=== PATIENT | female | born 1930 | race Caucasian/White ===

== ENCOUNTER 2018-03-27 14:23 | Inpatient (IN) ==
[2018-03-27] MEDS ORDERED: ACETAMINOPHEN 325 MG TAB PO STA (15:03)
[2018-03-27] MEDS ORDERED: TRAMADOL HCL 50 MG TABLET PO STA (15:03)
[2018-03-27] MEDS ORDERED: IBUPROFEN 200 MG TAB PO STA (15:03)
--- NOTE | 2018-03-27 16:46 | XRay Report ---
XR femur LT 2V routine CLINICAL HISTORY: 87 years-old Female presenting with mid and proximal thigh pain. TECHNIQUE: Frontal and lateral views of the left femur were obtained. COMPARISON: None. FINDINGS: Total left knee arthroplasty with patellar resurfacing. Subcapital fracture of the left femoral neck with 1.3 cm of proximal displacement of the distal fracture fragment. Slight impaction along the medi al aspect of the fracture plane as well as lateral displacement of the femoral neck. Minimal coxa leroy us angulation. Underlying osteopenia suspected. Visualized portion of the bony pelvis intact. Atheros clerosis. IMPRESSION: Subcapital left femoral neck fracture with mild impaction and proximal and lateral displacement. Electronically signed by: Anthony Hill M.D. 03/27/2018 4:44 PM
--- NOTE | 2018-03-27 16:55 | XRay Report ---
XR hip LT 2-3V w pelvis CLINICAL HISTORY: 87 years-old Female presenting with pain. TECHNIQUE: Single frontal view the pelvis and frontal and crosstable lateral views of the left hip we re obtained. COMPARISON: Correlation made to CT of the abdomen and pelvis from 11/11/2017. FINDINGS: Subcapital left femoral neck fracture with over 1 cm of lateral and proximal displacement of the dist al fracture fragment. Impaction along the medial aspect of the fracture plane. Minimal coxa varus ang ulation. The left femoral head remains congruent in the acetabulum. Bony pelvis intact. Sacral iliac joints, pubic symphysis, and right hip joint congruent. Underlying o steopenia suggested. Degenerative changes of the lower lumbar spine. Atherosclerosis. IMPRESSION: Mildly displaced and impacted subcapital left femoral neck fracture. Electronically signed by: Anthony Hill M.D. 03/27/2018 4:54 PM
--- NOTE | 2018-03-27 17:21 | Emergency Department Note ---
Entered by Toy Santacruz acting as a scribe for Jeremie Downey MD History of Present Illness General Chief complaint: Leg Injury/Pain Stated complaint: PAIN IN UPPER LEFT LEG WHEN PUTTING WEIGHT ON IT Time Seen by Provider: 03/27/18 14:46 Source: patient and family Limitations: no limitations History of Present Illness Provider complaint: Left upper leg pain Onset (ago): week(s) Location: lower extremity and left Pain Consistency: + other (worsening) Maximum Pain Intensity: 9 Relieved By: + other (certain positions) Exacerbated By: + movement and + other (walking/applying weight) Treatments prior to arrival: other (Hydrocodone) The patient is an 87 year old white female with a past medical history of GI bleed, CHF, PMR, hypertension, CAD, cardiac stents, total left knee replacement , and hysterectomy who presents to the Emergency Room with complaints of worsening pain in the left upper leg for the past week. The patient states that she has been having pain in the leg for the past week, which acutely worsened over the past two days. She does note that there is some "numbness" lower in the left leg as well. She denies any recent trauma or twisting/turning that could have precipitated the symptoms. The pain is worsened with applying weight and walking on the leg. She can get relief from the pain when she gets into the right position. The patient's daughter at bedside adds that the patient has a history of back issues and polymyalgia rheumatica. She has recently started following with pain management and has received 2 injections. The patient was doing very well for about 1 month after the injections, until this pain started. Pain management has prescribed her Hydrocodone, which she has been taking for her current pain as well. The daughter adds that the patient did have recent imaging of her back that showed a "chipped tailbone" and a fractured sacrum. She denies any lower extremity swelling or history of blood clots. Home Medications Home Medications Medication Instructions Recorded Confirmed Type amlodipine 10 mg PO DAILY 11/06/17 03/27/18 History atorvastatin 20 mg PO DAILY 11/06/17 03/27/18 History gabapentin 100 mg PO TID 11/06/17 03/27/18 History minoxidil 2.5 mg PO DAILY 11/06/17 03/27/18 History moexipril 7.5 mg PO DAILY #30 tab 11/13/17 03/27/18 Rx furosemide 20 mg PO DAILY PRN 03/27/18 03/27/18 History hydrocodone-acetaminophen 1 tab PO TID PRN 03/27/18 03/27/18 History metoprolol tartrate 50 mg PO BID 03/27/18 03/27/18 History pantoprazole 40 mg PO QAM 03/27/18 03/27/18 History prednisone 5 mg PO DAILY 03/27/18 03/27/18 History Allergies Allergy/AdvReac Type Severity Reaction Status Date / Time Sulfa (Sulfonamide Allergy Swelling Verified 03/27/18 15:35 Antibiotics) of the Eye zolpidem [From Ambien] AdvReac Unknown Confusion Verified 03/27/18 15:35 Past Med/Surg History Medical History Hypercalcemia Lower back pain Pulmonary hypertension Chronic diastolic CHF (congestive heart failure) Hyperlipidemia Polymyalgia rheumatica Hypertension CAD (coronary artery disease) Intrathoracic goiter Leukocytosis Surgical History History of breast biopsy History of appendectomy History of heart artery stent History of total left knee replacement (TKR) H/O: hysterectomy Family History Mother Renal cancer Other Coronary artery disease Social History marital status: / Current Living Situation: Alone Current Living Situation Comment: apartment for elderly Other Information That Helps Us Care for You: No Feels Safe at Home: Yes Safety Concerns: Feels Safe At This Time Smoking Status: Never smoker Do You Dip or Chew Tobacco: No Second Hand Exposure: No Tobacco Cessation Education Requested by Patient: No Hx Alcohol Use: No Hx Substance Use: No Beliefs That Will Affect Care: None Communication Ability: Effective Call Out Clerk Required: No Review of Systems See HPI for pertinent positives & negatives. and A total of 10 systems reviewed and were otherwise negative Physical Exam Vital Signs Vital Signs - 24 hr 03/27/18 14:37 03/27/18 16:10 03/27/18 17:59 Temperature 37.0 C Temperature Source Oral Sepsis Recent Fever Within 48 Hours No Sepsis New/Unexplained Change in Mental Status No Sepsis Action Taken by Nursing No Action Required Pulse Rate 59 L Pulse Rate [Apical] 60 59 L Pulse Rate [Left Finger] Respiratory Rate 18 22 20 Respiratory Effort / Characteristics Non-Labored Respiratory Depth Normal Respiratory Pattern Regular Blood Pressure 137/59 L Blood Pressure [Left Arm] 135/87 144/61 H Blood Pressure Mean 85 Blood Pressure Mean [Left Arm] 103 88 Blood Pressure Position Sitting Blood Pressure Position [Left Arm] Pulse Oximetry 92 92 94 Oxygen Delivery Method Room Air Room Air Room Air 03/27/18 19:00 03/27/18 20:15 Temperature 36.8 C Temperature Source Oral Sepsis Recent Fever Within 48 Hours Sepsis New/Unexplained Change in Mental Status Sepsis Action Taken by Nursing Pulse Rate Pulse Rate [Apical] 66 Pulse Rate [Left Finger] 62 Respiratory Rate 20 20 Respiratory Effort / Characteristics Non-Labored Non-Labored Spontaneous Respiratory Depth Normal Normal Respiratory Pattern Regular Regular Blood Pressure Blood Pressure [Left Arm] 133/70 123/67 Blood Pressure Mean Blood Pressure Mean [Left Arm] 91 85 Blood Pressure Position Blood Pressure Position [Left Arm] Lying Pulse Oximetry 94 96 Oxygen Delivery Method Room Air Room Air GENERAL: Well appearing, well nourished, NAD, non-toxic. EYE EXAM: Normal conjunctiva. PERRL, no anisocoria and EOM's grossly intact w/o pain. OROPHARYNX: No exudate, posterior pharynx is clear, no tonsillar/uvular deviation or swelling. NECK: Supple, no nuchal rigidity, no adenopathy, non-tender. no signs of meningismus. LUNGS: Clear to auscultation. Normal chest wall mechanics. HEART: NSR, no MRG. ABDOMEN: Abdomen soft, non-tender, normo-active bowel sounds, no masses, no rebound or guarding. BACK: No CVA TTP. SKIN: No rashes and no bruising. UPPER EXTREMITIES: Upper extremities are grossly normal. LOWER EXTREMITIES: There is pain over the left lateral hip and proximal thigh. No obvious deformity, no sensory deficit and well perfused. There is a well healed incisional scar over the left knee. NEURO EXAM: Cranial nerves II-XII grossly intact, normal speech, 5/5 strength throughout, moves all 4 extremities on command w/o issue. Course 1450: Past medical records reviewed. The patient was evaluated in room C11B, and a complete history and physical examination were performed. 1708: I updated the patient on the findings of her x-ray. 1713: I reviewed the patient's case with Dr. Kirsten Gay [place] [facility] [place] She will evaluate the patient for further management. 1719: I updated the patient on my consult with Dr. Gay. She is agreeable to admission. 1725: I discussed the case with Dr. Wu - Orthopedics. He will see the patient in consult. Consultations Consultation #1: 1713: I reviewed the patient's case with Dr. Kirsten Gay - [facility] [place]. She will evaluate the patient for further management. Administered Medications Gabapentin (Neurontin) 100 mg PO TID ELLIE Stop: 04/26/18 20:59 Last Admin: 03/27/18 21:57 Dose: 100 mg Metoprolol Tartrate (Lopressor) 50 mg PO BID ELLIE Stop: 04/26/18 20:59 Last Admin: 03/27/18 21:57 Dose: 50 mg Senna/Docusate Sodium (Senokot S) 2 tab PO HS ELLIE Stop: 04/26/18 20:59 Last Admin: 03/27/18 21:56 Dose: 2 tab Discontinued Medications Acetaminophen (Tylenol) 650 mg PO NOW STA Stop: 03/27/18 15:04 Last Admin: 03/27/18 15:22 Dose: 650 mg Ibuprofen (Advil) 400 mg PO NOW STA Stop: 03/27/18 15:04 Last Admin: 03/27/18 15:22 Dose: 400 mg Tramadol HCl (Ultram) 25 mg PO NOW STA Stop: 03/27/18 15:04 Last Admin: 03/27/18 15:23 Dose: 25 mg Medical Decision Making Medical Records Attestation: I reviewed the patient's medical records. Home Medications Current Medication List: was personally reviewed by me Laboratory Data Result diagrams: 03/27/18 17:27 03/27/18 17:27 Lab Results 03/27/18 03/27/18 03/27/18 Range/Units 17:27 17: 17:27 WBC 11.68 H (4.8-10.8) K/uL RBC 5.09 (4.2-5.4) M/uL Hgb 14.0 (12.0-16.0) g/dL Hct 43.9 (37-47) % MCV 86.2 (80-100) fL MCH 27.5 (25-34) pg MCHC 31.9 L (32-36) g/dL RDW Std Deviation 47.0 H (36.4-46.3) fL RDW Coeff of Madeline 14.8 H (11.5-14.5) % Plt Count 223 (130-400) K/uL MPV 9.1 (7.4-10.4) fL Immature Gran % (Auto) 0.3 % Neut % (Auto) 79.5 % Lymph % (Auto) 13.4 % Pratt % (Auto) 6.5 % Eos % (Auto) 0.3 % Baso % (Auto) 0.0 % Immature Gran # (Auto) 0.04 H (0.00-0.02) K/uL Neut # (Auto) 9.28 H (1.4-6.5) K/uL Lymph # (Auto) 1.56 (1.2-3.4) K/uL Pratt # (Auto) 0.76 H (0.11-0.59) K/uL Eos # (Auto) 0.04 (0-0.5) K/uL Baso # (Auto) 0.00 (0-0.2) K/uL PT 10.1 (9.0-12.0) Seconds INR 1.0 (0.9-1.1) APTT 25.3 (21.0-31.0) Seconds PTT Ratio 1.0 Sodium 136 (136-145) mmol/L Potassium 4.6 (3.5-5.1) mmol/L Chloride 105 (98-107) mmol/L Carbon Dioxide 27 (21-32) mmol/L Anion Gap 4.0 (3-11) BUN 33 H (7-18) mg/dl Creatinine 1.28 H (0.6-1.2) mg/dl Est Cr Clr Drug Dosing Not Reportable Est GFR ( Amer) 43.5 Est GFR (Non-Af Amer) 37.6 BUN/Creatinine Ratio 25.9 H (10-20) Glucose 104 H (70-99) mg/dl Calcium 10.3 H (8.5-10.1) mg/dl 25-OH Vitamin D Total (30-100) ng/ml Urine Color Urine Appearance (Clear) Urine pH (4.5-7.5) Ur Specific [place] (1.000-1.030) Urine Protein (Negative) Urine Glucose (UA) (Negative) Urine Ketones (Negative) Urine Blood (Negative) Urine Nitrite (Negative) Urine Bilirubin (Negative) Urine Urobilinogen (Negative) Ur Leukocyte Esterase (Negative) Urine WBC (Auto) (0-5) /hpf Urine RBC (Auto) (0-4) /hpf U Hyaline Cast (Auto) (0-5) /lpf U Epithel Cells (Auto) (0-5) /lpf Urine Bacteria (Auto) (Negative) Urine Crystals (None Prsent) Calcium Oxalate Crystal (None Prsent) Blood Type Antibody Screen 03/27/18 03/27/18 03/27/18 Range/Units 17:27 17:27 18:04 WBC (4.8-10.8) K/uL RBC (4.2-5.4) M/uL Hgb (12.0-16.0) g/dL Hct (37-47) % MCV (80-100) fL MCH (25-34) pg MCHC (32-36) g/dL RDW Std Deviation (36.4-46.3) fL RDW Coeff of Madeline (11.5-14.5) % Plt Count (130-400) K/uL MPV (7.4-10.4) fL Immature Gran % (Auto) % Neut % (Auto) % Lymph % (Auto) % Pratt % (Auto) % Eos % (Auto) % Baso % (Auto) % Immature Gran # (Auto) (0.00-0.02) K/uL Neut # (Auto) (1.4-6.5) K/uL Lymph # (Auto) (1.2-3.4) K/uL Pratt # (Auto) (0.11-0.59) K/uL Eos # (Auto) (0-0.5) K/uL Baso # (Auto) (0-0.2) K/uL PT (9.0-12.0) Seconds INR (0.9-1.1) APTT (21.0-31.0) Seconds PTT Ratio Sodium (136-145) mmol/L Potassium (3.5-5.1) mmol/L Chloride (98-107) mmol/L Carbon Dioxide (21-32) mmol/L Anion Gap (3-11) BUN (7-18) mg/dl Creatinine (0.6-1.2) mg/dl Est Cr Clr Drug Dosing Est GFR ( Amer) Est GFR (Non-Af Amer) BUN/Creatinine Ratio (10-20) Glucose (70-99) mg/dl Calcium (8.5-10.1) mg/dl 25-OH Vitamin D Total 33.6 (30-100) ng/ml Urine Color Yellow Urine Appearance Cloudy H (Clear) Urine pH 5.0 (4.5-7.5) Ur Specific [place] 1.022 (1.000-1.030) Urine Protein Negative (Negative) Urine Glucose (UA) Negative (Negative) Urine Ketones Negative (Negative) Urine Blood Negative (Negative) Urine Nitrite Negative (Negative) Urine Bilirubin Negative (Negative) Urine Urobilinogen Negative (Negative) Ur Leukocyte Esterase 1+ H (Negative) Urine WBC (Auto) 5-10 H (0-5) /hpf Urine RBC (Auto) 0-4 (0-4) /hpf U Hyaline Cast (Auto) 1-5 (0-5) /lpf U Epithel Cells (Auto) >30 H (0-5) /lpf Urine Bacteria (Auto) Negative (Negative) Urine Crystals Calcium Oxalate H (None Prsent) Calcium Oxalate Crystal Present H (None Prsent) Blood Type Cancelled Antibody Screen Cancelled 03/27/18 Range/Units 19:28 WBC (4.8-10.8) K/uL RBC (4.2-5.4) M/uL Hgb (12.0-16.0) g/dL Hct (37-47) % MCV (80-100) fL MCH (25-34) pg MCHC (32-36) g/dL RDW Std Deviation (36.4-46.3) fL RDW Coeff of Madeline (11.5-14.5) % Plt Count (130-400) K/uL MPV (7.4-10.4) fL Immature Gran % (Auto) % Neut % (Auto) % Lymph % (Auto) % Pratt % (Auto) % Eos % (Auto) % Baso % (Auto) % Immature Gran # (Auto) (0.00-0.02) K/uL Neut # (Auto) (1.4-6.5) K/uL Lymph # (Auto) (1.2-3.4) K/uL Pratt # (Auto) (0.11-0.59) K/uL Eos # (Auto) (0-0.5) K/uL Baso # (Auto) (0-0.2) K/uL PT (9.0-12.0) Seconds INR (0.9-1.1) APTT (21.0-31.0) Seconds PTT Ratio Sodium (136-145) mmol/L Potassium (3.5-5.1) mmol/L Chloride (98-107) mmol/L Carbon Dioxide (21-32) mmol/L Anion Gap (3-11) BUN (7-18) mg/dl Creatinine (0.6-1.2) mg/dl Est Cr Clr Drug Dosing Est GFR ( Amer) Est GFR (Non-Af Amer) BUN/Creatinine Ratio (10-20) Glucose (70-99) mg/dl Calcium (8.5-10.1) mg/dl 25-OH Vitamin D Total (30-100) ng/ml Urine Color Urine Appearance (Clear) Urine pH (4.5-7.5) Ur Specific [place] (1.000-1.030) Urine Protein (Negative) Urine Glucose (UA) (Negative) Urine Ketones (Negative) Urine Blood (Negative) Urine Nitrite (Negative) Urine Bilirubin (Negative) Urine Urobilinogen (Negative) Ur Leukocyte Esterase (Negative) Urine WBC (Auto) (0-5) /hpf Urine RBC (Auto) (0-4) /hpf U Hyaline Cast (Auto) (0-5) /lpf U Epithel Cells (Auto) (0-5) /lpf Urine Bacteria (Auto) (Negative) Urine Crystals (None Prsent) Calcium Oxalate Crystal (None Prsent) Blood Type O Positive Antibody Screen NEGATIVE Imaging Data Attestation: I personally reviewed and interpreted this imaging study as follows : Radiologist's Impression: XR hip LT 2-3V w pelvis CLINICAL HISTORY: 87 years-old Female presenting with pain. TECHNIQUE: Single frontal view the pelvis and frontal and crosstable lateral views of the left hip were obtained. COMPARISON: Correlation made to CT of the abdomen and pelvis from 11/11/2017. FINDINGS: Subcapital left femoral neck fracture with over 1 cm of lateral and proximal displacement of the distal fracture fragment. Impaction along the medial aspect of the fracture plane. Minimal coxa varus angulation. The left femoral head remains congruent in the acetabulum. Bony pelvis intact. Sacral iliac joints, pubic symphysis, and right hip joint congruent. Underlying osteopenia suggested. Degenerative changes of the lower lumbar spine. Atherosclerosis. IMPRESSION: Mildly displaced and impacted subcapital left femoral neck fracture. Electronically signed by: Anthony Hill M.D. 03/27/2018 4:54 PM XR femur LT 2V routine CLINICAL HISTORY: 87 years-old Female presenting with mid and proximal thigh pain. TECHNIQUE: Frontal and lateral views of the left femur were obtained. COMPARISON: None. FINDINGS: Total left knee arthroplasty with patellar resurfacing. Subcapital fracture of the left femoral neck with 1.3 cm of proximal displacement of the distal fracture fragment. Slight impaction along the medial aspect of the fracture plane as well as lateral displacement of the femoral neck. Minimal coxa varus angulation. Underlying osteopenia suspected. Visualized portion of the bony pelvis intact. Atherosclerosis. IMPRESSION: Subcapital left femoral neck fracture with mild impaction and proximal and lateral displacement. Electronically signed by: Anthony Hill M.D. 03/27/2018 4:44 PM MDM Narrative The patient is an 87 year old white female with a past medical history of GI bleed, CHF, PMR, hypertension, CAD, cardiac stents, total left knee replacement , and hysterectomy who presents to the Emergency Room with complaints of worsening pain in the left upper leg for the past week. Differential diagnosis: Etiologies such as fracture, dislocation, neurovascular compromise, compartment syndrome, soft tissue injury, as well as others were entertained. Patient was seen and evaluated the bedside. Patient was complaining some left upper leg pain. Patient is neuro intact distally but does have some restricted movement at the hip secondary to pain. Patient is good dorsiflexion and plantar flexion of the left ankle. No obvious overlying skin changes. Patient did have plain films completed which showed a subcapital femoral neck fracture. This is a closed injury. I did speak with the orthopedist who will see the patient. The patient was subsequently admitted to the medicine service for further evaluation and treatment with an orthopedic consult. Impression & Plan Closed subcapital fracture of neck of left femur Discharge Plan Visit Data *Final* Discharge Date/Time: 03/27/18 19:40 Chief Complaint: Leg Injury/Pain Stated Complaint: PAIN IN UPPER LEFT LEG WHEN PUTTING WEIGHT ON IT ED Provider: Jeremie Downey Discharge Problem: Closed subcapital fracture of neck of left femur Patient Disposition: Admitted As Inpatient Discharge Instructions Interventions: ED Discharge Assessment Last Done: 03/27/18 19:40 The scribe's documentation has been prepared under my direction and personally reviewed by me in its entirety. I confirm that the note above accurately reflects all work, treatment, procedures, and medical decision making performed by me.
[2018-03-27 17:39] LABS: Eosinophils # (auto) 0.04 K/uL (0-0.5); Eosinophils % (auto) 0.3 %; Hematocrit (blood only) 43.9 % (37-47); Immature Granulocytes # (auto) 0.04 K/uL (0.00-0.02); Immature Granulocytes % (auto) 0.3 %; Lymphocytes # (auto) 1.56 K/uL (1.2-3.4); Lymphocytes % (auto) 13.4 %; Mean Corpuscular Hgb Conc 31.9 g/dL (32-36); Mean Corpuscular Volume 86.2 fL (80-100); Mean Platelet Volume 9.1 fL (7.4-10.4); Monocytes # (auto) 0.76 K/uL (0.11-0.59); Monocytes % (auto) 6.5 %; Neutrophils # (auto) 9.28 K/uL (1.4-6.5); Neutrophils % (auto) 79.5 %; Platelet Count 223 K/uL (130-400); RDW Coefficient of Variation 14.8 % (11.5-14.5); Red Blood Count 5.09 M/uL (4.2-5.4); White Blood Count 11.68 K/uL (4.8-10.8)
[2018-03-27 17:55] LABS: Partial Thromboplastin Time 25.3 Seconds (21.0-31.0); Prothrombin Time 10.1 Seconds (9.0-12.0)
[2018-03-27 17:56] LABS: BUN Creatinine Ratio 25.9 (10-20); Blood Urea Nitrogen 33 mg/dl (7-18); Calcium 10.3 mg/dl (8.5-10.1); Carbon Dioxide 27 mmol/L (21-32); Chloride 105 mmol/L (98-107); Est GFR (African American) 43.5; Est GFR (Non-African American) 37.6; Glucose 104 mg/dl (70-99); Potassium 4.6 mmol/L (3.5-5.1); Sodium 136 mmol/L (136-145)
[2018-03-27 18:21] LABS: Appearance Urine Cloudy (Clear); Bacteria Urine Automated Negative (Negative); Bilirubin Urine Negative (Negative); Color Urine Yellow; Epithelial Cell Urine Auto >30 /lpf (0-5); Glucose Urine UA Negative (Negative); Ketones Urine Negative (Negative); Leukocyte Esterase Urine 1+ (Negative); Nitrite Urine Negative (Negative); Protein Urine Negative (Negative); Specific Gravity Urine 1.022 (1.000-1.030); Urobilinogen Urine Negative (Negative)
[2018-03-27 18:29] LABS: Calcium Oxalate Crystals Urine Present (None Prsent)
--- NOTE | 2018-03-27 18:53 | History & Physical Report ---
Date of Service March 27, 2018 Assessment & Plan (1) Closed subcapital fracture of neck of left femur: This patient is a very pleasant 87-year-old female with a history of PMR on prednisone, HTN, HL, chronic diastolic CHF, pulmonary hypertension, thyroid goiter, CAD status post stent in 2014, lower back pain, and gastritis, who presents to the ER with 1 week of progressively worsening left hip pain. The pain in the left hip started about 1 week ago spontaneously. She had no trauma or fall. It started radiating down her lateral left thigh and into the left groin to the point where she could barely walk anymore. In the ER, she was found to have a left subcapital hip fracture with mild impaction and proximal and lateral displacement. She reports that before the left hip pain, she could easily walk up and down a flight of stairs without any chest pain or shortness of breath. Since her stent placement in 2014 in the heart, she has had no cardiac issues. She has not had any angina at all. She reports she had an ultrasound of the heart about 2 months ago, but cannot recall if she has had a stress test since her stent was placed. She denies any shortness of breath, no lower extremity edema, and otherwise has been doing very well. I discussed with the patient and her family that given her history of CAD with stent, she is at higher than average risk of perioperative cardiovascular complication, however she has been very stable without any angina and can achieve at least 4 METs. ECG is normal she does not appear volume overloaded at this time. Renal function is acceptable. Because she has a hip fracture, it is recommended that she proceed with surgical repair if recommended by orthopedic surgery Patient understands these risks and is accepting of them -Admit to medical/surgical floor -Consult orthopedics-discussed with them on the phone-they will see her and evaluate for need for surgery -Make n.p.o. after midnight with gentle IV fluids in case of surgery tomorrow -Pain control with IV Dilaudid and/or oxycodone as needed -SCDs -Hip fracture protocol orders were placed (2) Hypertension: Well-controlled at this time -Continue home medications of amlodipine, metoprolol, minoxidil, moexipril (3) CAD (coronary artery disease): With history of stent in the coronary artery in 2014-no details on this are available after search of her outpatient and inpatient records -Request outside cardiology records from Dr. Soares -Patient was discontinued from her baby aspirin daily after her hospitalization in 10/2017 where she had gastritis and Hemoccult positive stool. She reports she never started it back again since that time. GI consultation at that time said that she could remain on her aspirin as long as she took Protonix along with it. -It will be important to restart her aspirin 81 mg daily in the postoperative period -Continue Protonix 40 mg once daily -Continue metoprolol 50 mg p.o. twice daily, TITO inhibitor, and atorvastatin (4) Intrathoracic goiter: TSH was checked last admission was normal (5) Pulmonary hypertension: Seen on echocardiogram last admission -She does not require oxygen at home and takes Lasix as needed (6) Chronic diastolic CHF (congestive heart failure): She does not appear volume overloaded at this time. She has grade 2 diastolic dysfunction on echocardiogram from 10/2017 -Takes Lasix on a as needed basis (7) Hyperlipidemia: Continue statin (8) Polymyalgia rheumatica: Diagnosed in 10/2017 and much improved since that time with prednisone therapy -Continue prednisone 5 mg daily -She was due to see her car manager this coming Wednesday to talk about coming off of the prednisone completely -Does not need stress dose steroids at this time but may in the perioperative setting-we will follow blood pressures (9) Gastritis: Has a history of suspected gastritis on previous admission with taking prednisone and with Hemoccult positive stool She was not scoped at that time due to other comorbidities -She is remained on a proton pump inhibitor since that time and has no complaints of abdominal pain, her hemoglobin is normal at 14 -It is okay for her to restart aspirin and remain on Protonix (10) Hypercalcemia: Calcium level here is elevated at 10.3, could be from some mild dehydration given the mild rise in her creatinine as well. -Vitamin D level is normal at 33 -Check intact parathyroid hormone, phosphorus levels in the morning, along with albumin and calcium (11) DVT prophylaxis: SCDs only for now -Okay to use aspirin after surgery Disposition-admit to medical/surgical floor History of Present Illness Chief Complaint: Left hip pain Primary Care Provider: Nnamdi Miranda This patient is a very pleasant 87-year-old female with a history of PMR on prednisone, HTN, HL, chronic diastolic CHF, pulmonary hypertension, thyroid goiter, CAD status post stent in 2015, lower back pain, and gastritis, who presents to the ER with 1 week of progressively worsening left hip pain. The pain in the left hip started about 1 week ago spontaneously. She had no trauma or fall. It started radiating down her lateral left thigh and into the left groin to the point where she could barely walk anymore. In the ER, she was found to have a left subcapital hip fracture with mild impaction and proximal and lateral displacement. She reports that before the left hip pain, she could easily walk up and down a flight of stairs without any chest pain or shortness of breath. Since her stent placement in 2014 in the heart, she has had no cardiac issues. She has not had any angina at all. She reports she had an ultrasound of the heart about 2 months ago, but cannot recall if she has had a stress test since her stent was placed. She denies any shortness of breath, no lower extremity edema, and otherwise has been doing very well. Allergies Allergy/AdvReac Type Severity Reaction Status Date / Time Sulfa (Sulfonamide Allergy Swelling Verified 03/27/18 15:35 Antibiotics) of the Eye zolpidem [From Ambien] AdvReac Unknown Confusion Verified 03/27/18 15:35 Home Medications Home Medications Medication Instructions Recorded Confirmed Type amlodipine 10 mg PO DAILY 11/06/17 03/27/18 History atorvastatin 20 mg PO DAILY 11/06/17 03/27/18 History gabapentin 100 mg PO TID 11/06/17 03/27/18 History minoxidil 2.5 mg PO DAILY 11/06/17 03/27/18 History moexipril 7.5 mg PO DAILY #30 tab 11/13/17 03/27/18 Rx furosemide 20 mg PO DAILY PRN 03/27/18 03/27/18 History hydrocodone-acetaminophen 1 tab PO TID PRN 03/27/18 03/27/18 History metoprolol tartrate 50 mg PO BID 03/27/18 03/27/18 History pantoprazole 40 mg PO QAM 03/27/18 03/27/18 History prednisone 5 mg PO DAILY 03/27/18 03/27/18 History Past Med/Surg History Medical History Lower back pain Pulmonary hypertension Chronic diastolic CHF (congestive heart failure) Hyperlipidemia Polymyalgia rheumatica Hypertension CAD (coronary artery disease) Intrathoracic goiter Leukocytosis Surgical History History of breast biopsy History of appendectomy History of heart artery stent History of total left knee replacement (TKR) H/O: hysterectomy Family History Mother Renal cancer Other Coronary artery disease Social History marital status: / Current Living Situation: Alone Current Living Situation Comment: apartment for elderly Other Information That Helps Us Care for You: No Feels Safe at Home: Yes Safety Concerns: Feels Safe At This Time Smoking Status: Never smoker Do You Dip or Chew Tobacco: No Second Hand Exposure: No Tobacco Cessation Education Requested by Patient: No Hx Alcohol Use: No Hx Substance Use: No Beliefs That Will Affect Care: None Communication Ability: Effective Operational Review Sergeant Required: No Review of Systems All systems reviewed & are unremarkable except as noted in HPI & below Physical Exam 2 Vital Signs (Past 24 Hours): Last Vital Signs Temp 37.0 C 03/27/18 14:37 Pulse 59 L 03/27/18 17:59 Resp 20 03/27/18 17:59 BP 144/61 H 03/27/18 17:59 Pulse Ox 94 03/27/18 17:59 Constitutional: WD/WN, vitals as above Eyes: PERRL, conjunctivae normal, anicteric sclerae ENMT: external ear and nose normal, oropharynx normal Neck: trachea midline, no thyromegaly Respiratory: normal respiratory effort, lungs clear to auscultation Cardiovascular: RRR, no murmur, no edema Gastrointestinal (Abdomen): normal bowel sounds, soft, nontender, no hepatosplenomegaly Musculoskeletal: Extremities: extremities normal to inspection; no cyanosis and no clubbing Hip: + joint line tenderness (Positive tenderness palpation over the left lateral hip and groin, I did not attempt range of motion) Skin: no rashes, warm and dry Neurologic: moves all extremities and awake; no focal motor deficits Psychiatric: A+Ox3, euthymic affect Results & Data Laboratory Results 01/03/27/18 03/27/18 Range/Units 19:28 18:04 17:27 WBC (4.8-10.8) K/uL RBC (4.2-5.4) M/uL Hgb (12.0-16.0) g/dL Hct (37-47) % MCV (80-100) fL MCH (25-34) pg MCHC (32-36) g/dL RDW Std Deviation (36.4-46.3) fL RDW Coeff of Madeline (11.5-14.5) % Plt Count (130-400) K/uL MPV (7.4-10.4) fL Immature Gran % (Auto) % Neut % (Auto) % Lymph % (Auto) % [place] % (Auto) % Eos % (Auto) % Baso % (Auto) % Immature Gran # (Auto) (0.00-0.02) K/uL Neut # (Auto) (1.4-6.5) K/uL Lymph # (Auto) (1.2-3.4) K/uL [place] # (Auto) (0.11-0.59) K/uL Eos # (Auto) (0-0.5) K/uL Baso # (Auto) (0-0.2) K/uL PT (9.0-12.0) Seconds INR (0.9-1.1) APTT (21.0-31.0) Seconds PTT Ratio Sodium (136-145) mmol/L Potassium (3.5-5.1) mmol/L Chloride (98-107) mmol/L Carbon Dioxide (21-32) mmol/L Anion Gap (3-11) BUN (7-18) mg/dl Creatinine (0.6-1.2) mg/dl Est Cr Clr Drug Dosing Est GFR ( Amer) Est GFR (Non-Af Amer) BUN/Creatinine Ratio (10-20) Glucose (70-99) mg/dl Calcium (8.5-10.1) mg/dl 25-OH Vitamin D Total 33.6 (30-100) ng/ml Urine Color Yellow Urine Appearance Cloudy H (Clear) Urine pH 5.0 (4.5-7.5) Ur Specific Eleanor 1.022 (1.000-1.030) Urine Protein Negative (Negative) Urine Glucose (UA) Negative (Negative) Urine Ketones Negative (Negative) Urine Blood Negative (Negative) Urine Nitrite Negative (Negative) Urine Bilirubin Negative (Negative) Urine Urobilinogen Negative (Negative) Ur Leukocyte Esterase 1+ H (Negative) Urine WBC (Auto) 5-10 H (0-5) /hpf Urine RBC (Auto) 0-4 (0-4) /hpf U Hyaline Cast (Auto) 1-5 (0-5) /lpf U Epithel Cells (Auto) >30 H (0-5) /lpf Urine Bacteria (Auto) Negative (Negative) Urine Crystals Calcium Oxalate H (None Prsent) Calcium Oxalate Crystal Present H (None Prsent) Blood Type O Positive Antibody Screen NEGATIVE 03/27/18 03/27/18 03/27/18 Range/Units 17:27 17:27 17:27 WBC (4.8-10.8) K/uL RBC (4.2-5.4) M/uL Hgb (12.0-16.0) g/dL Hct (37-47) % MCV (80-100) fL MCH (25-34) pg MCHC (32-36) g/dL RDW Std Deviation (36.4-46.3) fL RDW Coeff of Madeline (11.5-14.5) % Plt Count (130-400) K/uL MPV (7.4-10.4) fL Immature Gran % (Auto) % Neut % (Auto) % Lymph % (Auto) % [place] % (Auto) % Eos % (Auto) % Baso % (Auto) % Immature Gran # (Auto) (0.00-0.02) K/uL Neut # (Auto) (1.4-6.5) K/uL Lymph # (Auto) (1.2-3.4) K/uL [place] # (Auto) (0.11-0.59) K/uL Eos # (Auto) (0-0.5) K/uL Baso # (Auto) (0-0.2) K/uL PT 10.1 (9.0-12.0) Seconds INR 1.0 (0.9-1.1) APTT 25.3 (21.0-31.0) Seconds PTT Ratio 1.0 Sodium 136 (136-145) mmol/L Potassium 4.6 (3.5-5.1) mmol/L Chloride 105 (98-107) mmol/L Carbon Dioxide 27 (21-32) mmol/L Anion Gap 4.0 (3-11) BUN 33 H (7-18) mg/dl Creatinine 1.28 H (0.6-1.2) mg/dl Est Cr Clr Drug Dosing Not Reportable Est GFR ( Amer) 43.5 Est GFR (Non-Af Amer) 37.6 BUN/Creatinine Ratio 25.9 H (10-20) Glucose 104 H (70-99) mg/dl Calcium 10.3 H (8.5-10.1) mg/dl 25-OH Vitamin D Total (30-100) ng/ml Urine Color Urine Appearance (Clear) Urine pH (4.5-7.5) Ur Specific Eleanor (1.000-1.030) Urine Protein (Negative) Urine Glucose (UA) (Negative) Urine Ketones (Negative) Urine Blood (Negative) Urine Nitrite (Negative) Urine Bilirubin (Negative) Urine Urobilinogen (Negative) Ur Leukocyte Esterase (Negative) Urine WBC (Auto) (0-5) /hpf Urine RBC (Auto) (0-4) /hpf U Hyaline Cast (Auto) (0-5) /lpf U Epithel Cells (Auto) (0-5) /lpf Urine Bacteria (Auto) (Negative) Urine Crystals (None Prsent) Calcium Oxalate Crystal (None Prsent) Blood Type Cancelled Antibody Screen Cancelled 03/27/18 Range/Units 17:27 WBC 11.68 H (4.8-10.8) K/uL RBC 5.09 (4.2-5.4) M/uL Hgb 14.0 (12.0-16.0) g/dL Hct 43.9 (37-47) % MCV 86.2 (80-100) fL MCH 27.5 (25-34) pg MCHC 31.9 L (32-36) g/dL RDW Std Deviation 47.0 H (36.4-46.3) fL RDW Coeff of Madeline 14.8 H (11.5-14.5) % Plt Count 223 (130-400) K/uL MPV 9.1 (7.4-10.4) fL Immature Gran % (Auto) 0.3 % Neut % (Auto) 79.5 % Lymph % (Auto) 13.4 % [place] % (Auto) 6.5 % Eos % (Auto) 0.3 % Baso % (Auto) 0.0 % Immature Gran # (Auto) 0.04 H (0.00-0.02) K/uL Neut # (Auto) 9.28 H (1.4-6.5) K/uL Lymph # (Auto) 1.56 (1.2-3.4) K/uL [place] # (Auto) 0.76 H (0.11-0.59) K/uL Eos # (Auto) 0.04 (0-0.5) K/uL Baso # (Auto) 0.00 (0-0.2) K/uL PT (9.0-12.0) Seconds INR (0.9-1.1) APTT (21.0-31.0) Seconds PTT Ratio Sodium (136-145) mmol/L Potassium (3.5-5.1) mmol/L Chloride (98-107) mmol/L Carbon Dioxide (21-32) mmol/L Anion Gap (3-11) BUN (7-18) mg/dl Creatinine (0.6-1.2) mg/dl Est Cr Clr Drug Dosing Est GFR ( Amer) Est GFR (Non-Af Amer) BUN/Creatinine Ratio (10-20) Glucose (70-99) mg/dl Calcium (8.5-10.1) mg/dl 25-OH Vitamin D Total (30-100) ng/ml Urine Color Urine Appearance (Clear) Urine pH (4.5-7.5) Ur Specific Eleanor (1.000-1.030) Urine Protein (Negative) Urine Glucose (UA) (Negative) Urine Ketones (Negative) Urine Blood (Negative) Urine Nitrite (Negative) Urine Bilirubin (Negative) Urine Urobilinogen (Negative) Ur Leukocyte Esterase (Negative) Urine WBC (Auto) (0-5) /hpf Urine RBC (Auto) (0-4) /hpf U Hyaline Cast (Auto) (0-5) /lpf U Epithel Cells (Auto) (0-5) /lpf Urine Bacteria (Auto) (Negative) Urine Crystals (None Prsent) Calcium Oxalate Crystal (None Prsent) Blood Type Antibody Screen Diagnostic Findings I personally reviewed the x-rays and agree with the reports as below: XR femur LT 2V routine CLINICAL HISTORY: 87 years-old Female presenting with mid and proximal thigh pain. TECHNIQUE: Frontal and lateral views of the left femur were obtained. COMPARISON: None. FINDINGS: Total left knee arthroplasty with patellar resurfacing. Subcapital fracture of the left femoral neck with 1.3 cm of proximal displacement of the distal fracture fragment. Slight impaction along the medial aspect of the fracture plane as well as lateral displacement of the femoral neck. Minimal coxa varus angulation. Underlying osteopenia suspected. Visualized portion of the bony pelvis intact. Atherosclerosis. IMPRESSION: Subcapital left femoral neck fracture with mild impaction and proximal and lateral displacement. XR hip LT 2-3V w pelvis CLINICAL HISTORY: 87 years-old Female presenting with pain. TECHNIQUE: Single frontal view the pelvis and frontal and crosstable lateral views of the left hip were obtained. COMPARISON: Correlation made to CT of the abdomen and pelvis from 11/11/2017. FINDINGS: Subcapital left femoral neck fracture with over 1 cm of lateral and proximal displacement of the distal fracture fragment. Impaction along the medial aspect of the fracture plane. Minimal coxa varus angulation. The left femoral head remains congruent in the acetabulum. Bony pelvis intact. Sacral iliac joints, pubic symphysis, and right hip joint congruent. Underlying osteopenia suggested. Degenerative changes of the lower lumbar spine. Atherosclerosis. IMPRESSION: Mildly displaced and impacted subcapital left femoral neck fracture. ECG Additional Comments: ECG with sinus bradycardia, rate 57, no ischemic changes Code Status & VTE Plan Code Status Full code VTE Prophylaxis Plan VTE Prophylaxis will be ordered: Yes Reason for no VTE drug order: Contraindicated (Impending surgery) _ (1) CAD (coronary artery disease) Associated angina: without angina Coronary Disease-Associated Artery/Lesion type: [place] artery [place] vs. transplanted heart: [place] heart Qualified Code (s): I25.10 - Atherosclerotic heart disease of [place] coronary artery without angina pectoris (2) Hypertension Hypertension type: essential hypertension Qualified Code(s): I10 - Essential (primary) hypertension (3) Closed subcapital fracture of neck of left femur Encounter type: initial encounter Fracture healing: Qualified Code(s): S72.012A - Unspecified intracapsular fracture of left femur, initial encounter for closed fracture
[2018-03-27] MEDS ORDERED: NALOXONE HCL 0.4 MG/1 ML VIAL/CARP IV PRN (20:13)
[2018-03-27] MEDS ORDERED: ONDANSETRON INJ 2 MG/ML 2 ML VIAL IV PRN (20:13)
[2018-03-27] MEDS ORDERED: HYDROmorphone INJ 0.5 MG/0.5 ML SYR IV PRN (20:13)
[2018-03-27] MEDS ORDERED: BISACODYL 10 MG SUPP PR PRN (20:13)
[2018-03-27] MEDS ORDERED: SOD PHOSPHATE/SOD BIPHOSPHATE ENEMA 132 ML BTL PR PRN (20:13)
[2018-03-27] MEDS ORDERED: MAGNESIUM HYDROXIDE SUSP 30 ML UDC PO PRN (20:13)
--- NOTE | 2018-03-27 21:49 | Consultation ---
Date of Consultation March 27, 2018 Assessment & Plan (1) Closed subcapital fracture of neck of left femur: IMPRESSION: Right subcapital hip fracture, pathologic. PLAN: The patient is a 87 year old female who sustained a Traumatic Osteoporotic fracture of left femoral neck in setting without a fall. After orthopedic consult discussing the patients treatment options of conservative versus surgical intervention, she and her family agreed for a planned hip hemiarthroplasty. Since the patient was ambulatory prior to the injury and to avoid the risks of bed sores, pulmonary complications, and to give the patient the best chance for ambulation, I recommended surgery. The patient understands the risks of surgery, which include but are not limited to: bleeding, infection , re-operation, damage to nerves and arteries, continued pain, failure of the hardware, dislocation, DVT, and . In addition the patient is aware of the 20-30% morbidity associated with hip fracture for up to 1 year following a hip fracture. The patient and her family understands all of these instructions and explanations, all of their questions have been satisfactorily addressed. The patient has elected to proceed with surgery and the informed consent was signed. The patient will be admitted to the medicine service. She has been placed on the add-on schedule for tomorrow pending medical clearance we will proceed with surgery. She will be nothing by mouth after midnight. Non- weightbearing left lower extremity. Ancef on-call to the OR. Thank you for allowing me to participate in this patient's care. Present on Admission?: Yes History of Present Illness Reason for Consultation: Left hip pain Attending Physician: Kirsten Gay MD History of Present Illness Jennifer is a very pleasant 87-year-old female, who has had progressively worsening hip pain over the last 2 weeks. She denies any trauma or fall. At this point she is unable to bear weight. Prior to this she had been ambulating with a cane and walker. She came to the emergency room and x-rays were obtained she was found to have a subcapital left hip fracture and I was consulted for further evaluation and treatment. Allergies Allergy/AdvReac Type Severity Reaction Status Date / Time Sulfa (Sulfonamide Allergy Swelling Verified 03/27/18 15:35 Antibiotics) of the Eye zolpidem [From Ambien] AdvReac Unknown Confusion Verified 03/27/18 15:35 Home Medications Home Medications Medication Instructions Recorded Confirmed Type amlodipine 10 mg PO DAILY 11/06/17 03/27/18 History atorvastatin 20 mg PO DAILY 11/06/17 03/27/18 History gabapentin 100 mg PO TID 11/06/17 03/27/18 History minoxidil 2.5 mg PO DAILY 11/06/17 03/27/18 History moexipril 7.5 mg PO DAILY #30 tab 11/13/17 03/27/18 Rx furosemide 20 mg PO DAILY PRN 03/27/18 03/27/18 History hydrocodone-acetaminophen 1 tab PO TID PRN 03/27/18 03/27/18 History metoprolol tartrate 50 mg PO BID 03/27/18 03/27/18 History pantoprazole 40 mg PO QAM 03/27/18 03/27/18 History prednisone 5 mg PO DAILY 03/27/18 03/27/18 History Patient History Medical History Lower back pain Pulmonary hypertension Chronic diastolic CHF (congestive heart failure) Hyperlipidemia Polymyalgia rheumatica Hypertension CAD (coronary artery disease) Intrathoracic goiter Leukocytosis Surgical History History of breast biopsy History of appendectomy History of heart artery stent History of total left knee replacement (TKR) H/O: hysterectomy Family History Mother Renal cancer Other Coronary artery disease Social History marital status: / Current Living Situation: Alone Current Living Situation Comment: apartment for elderly Other Information That Helps Us Care for You: No Feels Safe at Home: Yes Safety Concerns: Feels Safe At This Time Smoking Status: Never smoker Do You Dip or Chew Tobacco: No Second Hand Exposure: No Tobacco Cessation Education Requested by Patient: No Hx Alcohol Use: No Hx Substance Use: No Beliefs That Will Affect Care: None Communication Ability: Effective Nuisance Wildlife Specialist Required: No Review of Systems A 10-point review of systems is noted in the [facility] medical record. Physical Exam 2 Vital Signs (Past 24 Hours): Last Vital Signs Temp 36.8 C 03/27/18 20:15 Pulse 62 03/27/18 20:15 Resp 20 03/27/18 20:15 BP 123/67 03/27/18 20:15 Pulse Ox 96 03/27/18 20:15 Physical Exam: Focusing on the patient's left lower extremity, 2+ DP pulse, sensation to light touch is intact, motor to the gastroc soleus, tibialis anterior, and EHL is 5/5. Pain with logroll in the groin. No obvious deformity. Calf is soft and nontender. Results & Data Diagnostic Findings Left subcapital hip fracture, with approximately 1 cm displacement, vertical orientation of the fracture. _ (1) Closed subcapital fracture of neck of left femur Encounter type: initial encounter Fracture healing: Qualified Code(s): S72.012A - Unspecified intracapsular fracture of left femur, initial encounter for closed fracture
[2018-03-27] MEDS: DOCUSATE SODIUM/SENNA 50/8.6MG TAB PO SCH (21:56)
[2018-03-27] MEDS: METOPROLOL TARTRATE 50 MG TAB PO SCH (21:57)
[2018-03-27] MEDS: GABAPENTIN 100 MG CAP PO SCH (21:57)
[2018-03-27] MEDS: LACTATED RINGER'S 1,000 ML IV SCH (23:59)
[2018-03-28] MEDS: OXYCODONE HCL IR 5 MG TAB (IMMEDIATE RELEASE) PO PRN ×2 (04:39→21:08)
[2018-03-28 05:59] LABS: Basophils # (auto) 0.01 K/uL (0-0.2); Basophils % (auto) 0.1 %; Eosinophils # (auto) 0.12 K/uL (0-0.5); Eosinophils % (auto) 1.3 %; Hematocrit (blood only) 40.2 % (37-47); Immature Granulocytes # (auto) 0.04 K/uL (0.00-0.02); Immature Granulocytes % (auto) 0.4 %; Lymphocytes # (auto) 2.48 K/uL (1.2-3.4); Lymphocytes % (auto) 26.3 %; Mean Corpuscular Hgb Conc 32.3 g/dL (32-36); Mean Corpuscular Volume 87.4 fL (80-100); Mean Platelet Volume 8.9 fL (7.4-10.4); Monocytes # (auto) 0.79 K/uL (0.11-0.59); Monocytes % (auto) 8.4 %; Neutrophils # (auto) 5.99 K/uL (1.4-6.5); Neutrophils % (auto) 63.5 %; Platelet Count 215 K/uL (130-400); White Blood Count 9.43 K/uL (4.8-10.8)
[2018-03-28] MEDS ORDERED: CEFAZOLIN 2000MG 2,000 MG/15 ML SYR IV SCH (06:00)
[2018-03-28 06:34] LABS: Albumin Level 3.1 gm/dl (3.4-5.0); BUN Creatinine Ratio 28.2 (10-20); Calcium 9.6 mg/dl (8.5-10.1); Creatinine Clr Calc Pharmacy 30.3 ml/min; Est GFR (African American) 47.1; Est GFR (Non-African American) 40.6; Potassium 4.2 mmol/L (3.5-5.1)
[2018-03-28] MEDS ORDERED: BUPIVACAINE 0.5 % 5 MG/1 ML PF 10ML VIAL ONE ×2 (07:32→14:29)
[2018-03-28] MEDS: predniSONE 5 MG TAB PO SCH (07:55)
[2018-03-28] MEDS: MINOXIDIL 2.5 MG TAB PO SCH (07:55)
[2018-03-28] MEDS: AMLODIPINE BESYLATE 5 MG TAB PO SCH (07:56)
[2018-03-28] MEDS: GABAPENTIN 100 MG CAP PO SCH ×3 (07:56→21:04)
[2018-03-28] MEDS: METOPROLOL TARTRATE 50 MG TAB PO SCH ×2 (07:57→21:03)
[2018-03-28] MEDS: ATORVASTATIN 20 MG TAB PO SCH (07:57)
[2018-03-28] MEDS: PANTOprazole 40 MG TAB PO SCH (07:57)
--- NOTE | 2018-03-28 07:59 | Orthopedic Progress Note ---
Date of Service March 28, 2018 Assessment & Plan (1) Closed subcapital fracture of neck of left femur: IMPRESSION: Left subcapital hip fracture, pathologic. PLAN: She was placed on the add-on schedule for today as long as she remains medically cleared to proceed with surgery. She has been NPO after midnight and remain non-weight bearing left lower extremity. The left limb was initialed. [id number] left lower extremity. Subjective Left hip pain Physical Exam 2 Vital Signs (Past 24 Hours): Last Vital Signs Temp 36.7 C 03/27/18 23:36 Pulse 55 L 03/27/18 23:36 Resp 18 03/27/18 23:36 BP 145/68 H 03/27/18 23:36 Pulse Ox 96 03/27/18 23:36 Physical Exam: Focusing on the left lower extremity, she is neurovascularly intact. She has pain with logroll of the left hip. Calves are soft and nontender _ (1) Closed subcapital fracture of neck of left femur Encounter type: initial encounter Fracture healing: Qualified Code(s): S72.012A - Unspecified intracapsular fracture of left femur, initial encounter for closed fracture
--- NOTE | 2018-03-28 08:34 | Anesthesiology Consultation ---
Date of Service March 28, 2018 Assessment & Plan (1) Encounter for pre-operative examination: Chart Review Chart Review: Acceptable Risk for Surgery and Patient NOT seen in Pre Admission Testing Consults Requested medical Hospitalist progress note: Given her history of CAD with stent, she is at higher than average risk of perioperative cardiovascular complication, however she has been very stable without any angina and can achieve at least 4 METs. ECG is normal she does not appear volume overloaded at this time. Renal function is acceptable. Because she has a hip fracture, it is recommended that she proceed with surgical repair if recommended by orthopedic surgery Patient understands these risks and is accepting of them NPO Date Last Intake of Fluids: 03/27/18 Time Last Intake of Fluids: 23:59 Date Last Intake of Solids: 03/27/18 Time Last Intake of Solids: 23:59 History Surgery Operation Date: 03/28/18 08:20 Proposed Procedures p Hemiarthroplasty Hip left - Jayson Patricia Wu MD Height/Weight Height: 5 ft Weight: 77 kg Allergies Allergy/AdvReac Type Severity Reaction Status Date / Time Sulfa (Sulfonamide Allergy Swelling Verified 03/27/18 15:35 Antibiotics) of the Eye zolpidem [From Ambien] AdvReac Unknown Confusion Verified 03/27/18 15:35 Medications Home Medications Medication Instructions Recorded Confirmed Last Taken amlodipine 10 mg PO DAILY 11/06/17 03/27/18 Unknown atorvastatin 20 mg PO DAILY 11/06/17 03/27/18 Unknown gabapentin 100 mg PO TID 11/06/17 03/27/18 Unknown minoxidil 2.5 mg PO DAILY 11/06/17 03/27/18 Unknown moexipril 7.5 mg PO DAILY #30 tab 11/13/17 03/27/18 Unknown furosemide 20 mg PO DAILY PRN 03/27/18 03/27/18 Unknown hydrocodone-acetaminophen 1 tab PO TID PRN 03/27/18 03/27/18 Unknown metoprolol tartrate 50 mg PO BID 03/27/18 03/27/18 Unknown pantoprazole 40 mg PO QAM 03/27/18 03/27/18 Unknown prednisone 5 mg PO DAILY 03/27/18 03/27/18 Unknown Active Medications Generic Name Dose Route Start Last Admin Trade Name Freq PRN Reason Stop Dose Admin Amlodipine Besylate 10 mg 03/28/18 09:00 03/28/18 07:56 Norvasc PO 04/27/18 08:59 10 mg DAILY ELLIE Administration Atorvastatin Calcium 20 mg 03/28/18 09:00 03/28/18 07:57 Lipitor PO 04/27/18 08:59 20 mg DAILY ELLIE Administration Gabapentin 100 mg 03/27/18 21:00 03/28/18 07:56 Neurontin PO 04/26/18 20:59 100 mg TID ELLIE Administration Lactated Ringer's 1,000 mls @ 75 mls/hr 03/27/18 23:59 03/28/18 05:40 Lr IV 04/26/18 23:58 75 mls/hr .[id number] ELLIE Infusion Metoprolol Tartrate 50 mg 03/27/18 21:00 03/28/18 07:57 Lopressor PO 04/26/18 20:59 50 mg BID ELLIE Administration Minoxidil 2.5 mg 03/28/18 09:00 03/28/18 07:55 Loniten PO 04/27/18 08:59 2.5 mg DAILY ELLIE Administration Miscellaneous 1 ea 03/28/18 00:00 03/28/18 07:55 Order Awaiting Action N/A 04/27/18 00:00 Not Given QS ELLIE Oxycodone HCl 5 mg 03/27/18 20:13 03/28/18 04:39 Roxicodone Immediate Rel PO 04/10/18 20:12 5 mg Q4H PRN Administration moderate pain (scale 4-6) Pantoprazole Sodium 40 mg 03/28/18 09:00 03/28/18 07:57 Protonix PO 04/27/18 08:59 40 mg QAM ELLIE Administration Prednisone 5 mg 03/28/18 09:00 03/28/18 07:55 Prednisone PO 04/27/18 08:59 5 mg DAILY ELLIE Administration Senna/Docusate Sodium 2 tab 03/27/18 21:00 03/27/18 21:56 Senokot S PO 04/26/18 20:59 2 tab HS ELLIE Administration Past Medical History Medical History Hypercalcemia Lower back pain Pulmonary hypertension Chronic diastolic CHF (congestive heart failure) Hyperlipidemia Polymyalgia rheumatica on prednisone Diagnosed in 10/2017 and much improved since that time with prednisone therapy -Continue prednisone 5 mg daily -She was 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 With 5.[address] mass on [address] of the chest from outside hospital which is stable from 04/2016, which was re- demonstrated while inpatient. Her TSH was slightly low at 0.259, but free T4 and free T3 are within normal limits. Will need follow-up with endocrinology as an outpatient in 1-2 weeks. Leukocytosis Past Family History Family History Mother Renal cancer Other Coronary artery disease Past Surgical History Surgical History History of breast biopsy History of appendectomy History of heart artery stent 2014 History of total left knee replacement (TKR) H/O: hysterectomy Social History Smoking Status: Never smoker Do You Dip or Chew Tobacco: No Hx Alcohol Use: No Hx Substance Use: No substance use type: does not use Physical Exam Vital Signs Last Vital Signs Temp 36.7 C 03/27/18 23:36 Pulse 55 L 03/27/18 23:36 Resp 18 03/27/18 23:36 BP 145/68 H 03/27/18 23:36 Pulse Ox 96 03/27/18 23:36 Testing Electrocardiogram Date: 03/27/18 Findings: + SB @ (57) Sinus bradycardia Otherwise normal ECG When compared with ECG of 08-NOV-2017 09:29, Vent. rate has decreased BY 32 BPM Nonspecific T wave abnormality no longer evident in Inferior leads Nonspecific T wave abnormality, improved in Anterolateral leads Echocardiogram Date: 10/31/17 LV is normal in size. Normal LV wall thickness EF 60-65% LV hyperdynamic Grade 2 DD LV wall motion is normal. Laboratory Results 03/28/18 05:42 03/28/18 05:42 Blood Type O Positive 03/27/18 19:28 Antibody Screen NEGATIVE 03/27/18 19:28 PT 10.1 Seconds (9.0-12.0) 03/27/18 17: INR 1.0 (0.9-1.1) 03/27/18 17: APTT 25.3 Seconds (21.0-31.0) 03/27/18 17:27 Urine Color Yellow 03/27/18 18:04 Urine Appearance Cloudy (Clear) H 03/27/18 18:04 Urine pH 5.0 (4.5-7.5) 03/27/18 18:04 Ur Specific [place] 1.022 (1.000-1.030) 03/27/18 18:04 Urine Protein Negative (Negative) 03/27/18 18:04 Urine Glucose (UA) Negative (Negative) 03/27/18 18:04 Urine Ketones Negative (Negative) 03/27/18 18:04 Urine Nitrite Negative (Negative) 03/27/18 18:04 Ur Leukocyte Esterase 1+ (Negative) H 03/27/18 18:04 Urine WBC (Auto) 5-10 /hpf (0-5) H 03/27/18 18:04 Urine RBC (Auto) 0-4 /hpf (0-4) 03/27/18 18:04 U Hyaline Cast (Auto) 1-5 /lpf (0-5) 03/27/18 18:04 U Epithel Cells (Auto) >30 /lpf (0-5) H 03/27/18 18:04 Urine Bacteria (Auto) Negative (Negative) 03/27/18 18:04
[2018-03-28] MEDS ORDERED: LIDOCAINE/EPINEPHRINE 1% 20 ML VIAL ONE (13:54)
[2018-03-28] MEDS ORDERED: BUPIVACAINE 0.5 % 5 MG/1 ML MPF 30ML VIAL ONE (13:54)
[2018-03-28] MEDS ORDERED: fentaNYL citrate 100 MCG/2 ML VIAL ONE (14:05)
[2018-03-28] MEDS ORDERED: MIDAZOLAM HCL 1 MG/ML 2ML VIAL ONE (14:05)
[2018-03-28] MEDS ORDERED: ROPIVACAINE 0.5% HCL/PF 150 MG, BUPIVACAINE 0.5% MPF 30 ML, EPINEPHrine 0.15 MG, Ketoro... INFIL STA (14:54)
[2018-03-28] MEDS ORDERED: ePHEDrine sulfate 50 MG/ML AMP IV PRN (15:01)
[2018-03-28] MEDS ORDERED: ONDANSETRON INJ 2 MG/ML 2 ML VIAL IV PRN (15:01)
[2018-03-28] MEDS ORDERED: fentaNYL citrate 100 MCG/2 ML VIAL IV PRN (15:01)
[2018-03-28] MEDS ORDERED: ATROPINE SULFATE 0.1 MG/ML 10ML SYR IV PRN (15:01)
[2018-03-28] MEDS ORDERED: PROPOFOL IV EMULSION 10 MG/ML 20 ML VIAL IV ONE ×2 (15:20→15:32)
[2018-03-28] MEDS ORDERED: PHENYLEPHRINE 100MCG/ML 5ML SYR ONE (15:20)
[2018-03-28] MEDS ORDERED: LIDOCAINE HCL 2% 2 ML VIAL/AMP(20MG/ML) INFIL ONE (15:20)
[2018-03-28] MEDS ORDERED: ePHEDrine sulfate 50 MG/ML SYR ONE (15:20)
--- NOTE | 2018-03-28 16:30 | XRay Report ---
XR hip LT min 2V CLINICAL HISTORY: 87 years-old Female presenting with LEFT HIP IN OR 7. TECHNIQUE: Crosstable lateral view of the left hip was obtained. COMPARISON: 03/27/2018. FINDINGS: There has been interval left hip arthroplasty. The tangirnaq acetabulum appears preserved. An open surgi radha wound is evident. Allowing for the single projection, no periprosthetic fracture. Osteopenia susp ected. Bony pelvis grossly intact. IMPRESSION: Expected postsurgical appearance of the left hip arthroplasty allowing for the single crosstable late ral projection. Electronically signed by: Anthony Hill M.D. 03/28/2018 4:29 PM
--- NOTE | 2018-03-28 17:19 | Post Operative Brief Note ---
Immediate Post Op Note v1 Date of Surgery March 28, 2018 Pre & Post Diagnosis Operation Date: 03/28/18 08:20 Pre-Op Diagnosis: Left Hip Fracture Post-Op Diagnosis: Left Hip Fracture Procedure Operation Date: 03/28/18 08:20 Actual Procedures p Left hip Hemiarthroplasty(Left) - Jayson Wu MD Surgeon Jayson Wu MD Estimate Clerk Radu Gayle PA-C & Radu Edwards PA-C (No fellow avail) Estimated Blood Loss 120 Findings See Below Displaced, comminuted Left femoral neck fracture Fluids 1500 cc Specimens Left hip contents Drains Duncan Catheter Anesthesia Type Spinal Complications none
--- NOTE | 2018-03-28 17:20 | Operative Report ---
Post Operative Report Pre & Post Diagnosis Operation Date: 03/28/18 08:20 Pre-Op Diagnosis: Left Hip Fracture Post-Op Diagnosis: Left Hip Fracture Procedure Operation Date: 03/28/18 08:20 Actual Procedures p Left hip Hemiarthroplasty(Left) - Jayson Wu MD Surgeon Jayson Wu MD Area Captain Radu Gayle PA-C & Radu Edwards PA-C (No fellow avail) Estimated Blood Loss 120 Findings See Below Left hip displaced, comminuted femoral neck fracture Fluids 1500 cc Specimens Left hip contents Anesthesia Type Spinal MAC Complications none Indications The patient is a 87 year old female who sustained a Osteoporotic fracture of left femoral neck in setting without a fall. After orthopedic consult discussing the patients treatment options of conservative versus surgical intervention, she agreed for a planned hemiarthroplasty. Since the patient was ambulatory prior to the injury and to avoid the risks of bed sores, pulmonary complications, and to give the patient the best chance for ambulation, I recommended surgery. The patient understands the risks of surgery, which include but are not limited to: bleeding, infection, re-operation, damage to nerves and arteries, continued pain, failure of the hardware, dislocation, DVT, and . In addition the patient is aware of the 20-30% morbidity associated with hip fracture for up to 1 year following a hip fracture. The patient understands all of these instructions and explanations, all of their questions have been satisfactorily addressed. The patient has elected to proceed with surgery and the informed consent was signed. Description of Procedure IMPLANTS: 1) VerSys Hip System Fiber Metal Taper 12/14 Neck Taper, Size 12 Standard body/ Neck Offset Cemented (David/Biomet). 2) Femoral Head 28mm Diameter, + 0 mm Neck Length. 3) 48 mm Multipolar Bipolar Cup. 4) 28 mm ID Liner, Multipolar Bipolar Cup. 5) Distal Centralizer, 11 mm. 6) Palacos cement 2. PROCEDURE: The patient was taken to the Operating Room and placed in the lateral position with a diallo bag following spinal anesthesia administration. A multidisciplinary time-out was performed identifying my initials on the left lower limb as the correct and operative limb. Prior to the incision being made , 2 grams of intravenous Ancef were given. The left lower extremity was prepped in the standard fashion. The trochanter was marked as was the planned incision 1/3 proximal and 2/3 distal to the tip of the greater trochanter. The incisions were injected with a 50:50 mixture of 1% Lidocaine plain and 0.5% Bupivacaine epi for a total of 10cc. A standard posterior approach was made. The planned incision was carried down through the Tensor Fascia Patsy , which was then split in-line with its fibers. The Gluteus Drake was bluntly dissected. The Piriformis and short external rotators were dissected off the capsule and femur and tagged for later repair. The fracture was easily identified as it had impaled the posterior capsule. The capsule was incised and freed off the fracture fragments. The Neck cut was made to allow removal of the femoral head and comminuted fragments. The femoral canal was prepared with Box osteotome, followed by a canal finder. The femur was sequentially broached in the standard fashion, and there was some resistance once we reached the #12 broach. The canal was further hand reamed from 9 up to 12-1/2 mm reamer. The #12 broach was then able to be placed in a good position. Trial heads were placed. Fluoroscopy was brought in and showed proper alignment, fill of the canal, head size, and leg length. The trial components were removed and the wound and femoral canal were copiously irrigated and dried. The femur was cemented using 3rd generation technique followed by placement of the components in the standard fashion and the hip reduced. There was excellent stability with no sense of dislocation with 25 degrees adduction, flexion 90 degrees, and internal rotation to 60 degrees. The wounds were copiously irrigated. The External rotators and capsule were closed over bon bridges with #2 FiberWire. The capsule was also closed with 0 Vicryl. The Tensor Fascia Patsy was closed with #1 Vicryl. The subcutaneous fat had a stay suture placed using 0 Vicryl. The subcutaneous tissue was closed with 3-0 Vicryl. The skin was closed with Zip-Line with protective cover. The incisions were covered with 4 x 4's, ABD's and foam tape. An abduction pillow was placed between her legs. The patient was transfer to her hospital bed and taken to the PACU in stable condition. The sponge and needle counts were correct. Post-op Instructions: The patient was admitted to back to the Med/Surg floor. Final x-rays were obtained in the PACU, showing excellent placement of the prosthesis and cementing. The patient will be WBAT with a walker. The patient will be seen by PT/OT. The patient's labs will be checked in the am. DVT prophylaxis will be with TEDs, mechanical devices and Lovenox starting in the AM as the patient had spinal anesthesia. I attest to the content of the Intraoperative Record and any orders documented therein. Any exceptions are noted below.
--- NOTE | 2018-03-28 17:39 | Operative Report ---
Post Operative Report Pre & Post Diagnosis Operation Date: 03/28/18 08:20 Pre-Op Diagnosis: Left Hip Fracture Post-Op Diagnosis: Left Hip Fracture Procedure Operation Date: 03/28/18 08:20 Actual Procedures p Left hip Hemiarthroplasty(Left) - Jayson Wu MD Surgeon Lavell Selby. Process Manager Radu Gayle PA-C & Radu Edwards PA-C (No fellow avail) Estimated Blood Loss 120 Findings Consistent with Post-Op Diagnosis Specimens Left femoral head Drains None Anesthesia Type Spinal MAC Complications none Description of Procedure Patient was taken to the operating room and given a spinal anesthesia. She is placed under IV sedation. Timeout was performed. She was given IV Ancef for surgical prophylaxis. She was prepped and draped in routine sterile fashion. She was placed in the right lateral decubitus position. I was present during the entire case and assisted with positioning, exposure, implantation, cementing , closure and dressings. Please see Dr. Wu's operative report for further details. Patient was awakened and transferred to recovery room in stable condition.
--- NOTE | 2018-03-28 18:40 | Anesthesiology Progress Note ---
Date of Service March 28, 2018 Anesthesia Post Procedure Vital Signs Vital Signs: Temp Pulse Pulse Pulse Resp BP Pulse Ox 03/28/18 17:40 97.5 F L 86 16 148/64 H 99 03/28/18 13:46 98.4 F 62 20 155/75 H 94 03/27/18 23:36 98.1 F 55 L 18 145/68 H 96 03/27/18 20:15 98.2 F 62 20 123/67 96 03/27/18 19:00 66 20 133/70 94 Pain Intensity Leg: Pain Intensity: 0 Notes Mental Status: alert / awake / arousable and participated in evaluation Patient Amnestic to Procedure: Yes Nausea / Vomiting: adequately controlled Pain: adequately controlled Airway Patency, RR, SpO2: stable & adequate BP & HR: stable & adequate Hydration State: stable & adequate Neuraxial Anesthesia: was administered and sensory block is resolving Anesthetic Complications: no major complications apparent and Pt Satisfied with anesthetic care
[2018-03-28] MEDS: LACTATED RINGER'S 1,000 ML IV SCH (19:00)
--- NOTE | 2018-03-28 19:01 | XRay Report ---
XR hip LT min 2V CLINICAL HISTORY: Post-Operative implant position COMPARISON: Left hip radiographs March 27, 2018. 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 There is no periprosthetic fract ure or unexpected radiopaque foreign body. IMPRESSION: Expected findings following total left hip arthroplasty. Electronically signed by: Eliecer Ochoa M.D. 03/28/2018 7:00 PM
--- NOTE | 2018-03-28 20:11 | Hospitalist Progress Note ---
Date of Service March 28, 2018 Assessment & Plan (1) Closed subcapital fracture of neck of left femur: This patient is a very pleasant 87-year-old female with a history of PMR on prednisone, HTN, HL, chronic diastolic CHF, pulmonary hypertension, thyroid goiter, CAD status post stent in 2014, lower back pain, and gastritis, who presents to the ER with 1 week of progressively worsening left hip pain. The pain in the left hip started about 1 week ago spontaneously. She had no trauma or fall. It started radiating down her lateral left thigh and into the left groin to the point where she could barely walk anymore. In the ER, she was found to have a left subcapital hip fracture with mild impaction and proximal and lateral displacement. Now status post left hip hemiarthroplasty -Pain control with acetaminophen, IV Dilaudid as needed, oxycodone as needed -Orthopedic surgery management appreciated -Continue IV fluids for tonight as she just returned from the PACU and is not taking much by mouth. -Bowel regimen ordered -DVT prophylaxis with SCDs and Lovenox 40 mg SQ every 24 hours to begin in the morning PT/OT evaluations will be needed and rehab placement to be considered -Check CBC, BMP in the morning (2) Hypertension: Well-controlled at this time -Continue home medications of amlodipine, metoprolol, minoxidil, moexipril (3) CAD (coronary artery disease): With history of stent in the coronary artery in 2014-no details on this are available after search of her outpatient and inpatient records -Request outside cardiology records from Dr. Soares-they still have not come in yet -Patient was discontinued from her baby aspirin daily after her hospitalization in 10/2017 where she had gastritis and Hemoccult positive stool. She reports she never started it back again since that time. GI consultation at that time said that she could remain on her aspirin as long as she took Protonix along with it. -Will restart her aspirin 81 mg daily starting tomorrow -Continue Protonix 40 mg once daily -Continue metoprolol 50 mg p.o. twice daily, TITO inhibitor, and atorvastatin (4) Intrathoracic goiter: TSH was checked last admission was normal (5) Pulmonary hypertension: Seen on echocardiogram last admission -She does not require oxygen at home and takes Lasix as needed (6) Chronic diastolic CHF (congestive heart failure): She does not appear volume overloaded at this time. 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 to talk about coming off of the prednisone completely -Does not need stress dose steroids at this time but may in the postoperative setting-we will follow blood pressures (9) Gastritis: Has a history of suspected gastritis on previous admission with taking prednisone and with Hemoccult positive stool She was not scoped at that time due to other comorbidities -She has remained on a proton pump inhibitor since that time and has no complaints of abdominal pain, her hemoglobin is normal at 14 on admission -It is okay for her to restart aspirin in the morning and remain on Protonix -Follow CBC as above (10) Hypercalcemia: Calcium level here is elevated at 10.3 on admission and is now improved down to 9.6 after IV fluid hydration. Albumin is only minimally low at 3.1 which makes her corrected calcium level mildly elevated at 10.32 -Vitamin D level is normal at 33 -Intact parathyroid hormone is elevated at 87.9 Phosphorus 3.0 -Could be primary hyperparathyroidism -will need to follow closely after discharge and if worsening, could consider further endocrine workup (11) DVT prophylaxis: SCDs, starting Lovenox in the morning Disposition-continued stay PT/OT consults will be needed, rehab placement will be advised Subjective Patient just returned to the floor from the PACU. She had some confusion right after her sedation wore off, but now is feeling much better. She denies pain in the hip. Denies chest pain or shortness of breath, denies nausea or abdominal pain. Review of Systems All systems reviewed & are unremarkable except as noted in HPI & below Physical Exam 2 Vital Signs (Past 24 Hours): Last Vital Signs Temp 36.4 C L 03/28/18 19:30 Pulse 85 03/28/18 19:30 Resp 18 03/28/18 19:30 BP 153/72 H 03/28/18 19:30 Pulse Ox 96 03/28/18 19:30 Constitutional: WD/WN, vitals as above Eyes: PERRL, conjunctivae normal, anicteric sclerae ENMT: external ear and nose normal, oropharynx normal Neck: trachea midline, no thyromegaly Respiratory: normal respiratory effort, lungs clear to auscultation Cardiovascular: RRR, no murmur, no edema Gastrointestinal (Abdomen): normal bowel sounds, soft, nontender, no hepatosplenomegaly Musculoskeletal: Extremities: extremities normal to inspection; no cyanosis and no clubbing Hip: + hip abnormal to inpsection (Dressing in place is clean dry and intact of the left hip) Skin: no rashes, warm and dry Neurologic: moves all extremities and awake; no focal motor deficits Psychiatric: A+Ox3, euthymic affect Results & Data Laboratory Results 03/28/18 03/28/18 03/28/18 Range/Units 05:42 05:42 05:42 WBC 9.43 (4.8-10.8) K/uL RBC 4.60 (4.2-5.4) M/uL Hgb 13.0 (12.0-16.0) g/dL Hct 40.2 (37-47) % MCV 87.4 (80-100) fL MCH 28.3 (25-34) pg MCHC 32.3 (32-36) g/dL RDW Std Deviation 48.0 H (36.4-46.3) fL RDW Coeff of [place] 15.0 H (11.5-14.5) % Plt Count 215 (130-400) K/uL MPV 8.9 (7.4-10.4) fL Immature Gran % (Auto) 0.4 % Neut % (Auto) 63.5 % Lymph % (Auto) 26.3 % [place] % (Auto) 8.4 % Eos % (Auto) 1.3 % Baso % (Auto) 0.1 % Immature Gran # (Auto) 0.04 H (0.00-0.02) K/uL Neut # (Auto) 5.99 (1.4-6.5) K/uL Lymph # (Auto) 2.48 (1.2-3.4) K/uL [place] # (Auto) 0.79 H (0.11-0.59) K/uL Eos # (Auto) 0.12 (0-0.5) K/uL Baso # (Auto) 0.01 (0-0.2) K/uL Sodium 140 (136-145) mmol/L Potassium 4.2 (3.5-5.1) mmol/L Chloride 107 (98-107) mmol/L Carbon Dioxide 28 (21-32) mmol/L Anion Gap 5.0 (3-11) BUN 34 H (7-18) mg/dl Creatinine 1.20 (0.6-1.2) mg/dl Est Cr Clr Drug Dosing 30.3 ml/min Est GFR ( Amer) 47.1 Est GFR (Non-Af Amer) 40.6 BUN/Creatinine Ratio 28.2 H (10-20) Glucose 89 (70-99) mg/dl Calcium 9.6 (8.5-10.1) mg/dl Phosphorus 3.0 (2.5-4.9) mg/dl Albumin 3.1 L (3.4-5.0) gm/dl 25-OH Vitamin D Total (30-100) ng/ml PTH Intact 87.9 H (18.4-80.1) pg/ml Blood Type Antibody Screen 03/27/18 03/27/18 Range/Units 19:28 17:27 WBC (4.8-10.8) K/uL RBC (4.2-5.4) M/uL Hgb (12.0-16.0) g/dL Hct (37-47) % MCV (80-100) fL MCH (25-34) pg MCHC (32-36) g/dL RDW Std Deviation (36.4-46.3) fL RDW Coeff of [place] (11.5-14.5) % Plt Count (130-400) K/uL MPV (7.4-10.4) fL Immature Gran % (Auto) % Neut % (Auto) % Lymph % (Auto) % [place] % (Auto) % Eos % (Auto) % Baso % (Auto) % Immature Gran # (Auto) (0.00-0.02) K/uL Neut # (Auto) (1.4-6.5) K/uL Lymph # (Auto) (1.2-3.4) K/uL [place] # (Auto) (0.11-0.59) K/uL Eos # (Auto) (0-0.5) K/uL Baso # (Auto) (0-0.2) K/uL Sodium (136-145) mmol/L Potassium (3.5-5.1) mmol/L Chloride (98-107) mmol/L Carbon Dioxide (21-32) mmol/L Anion Gap (3-11) BUN (7-18) mg/dl Creatinine (0.6-1.2) mg/dl Est Cr Clr Drug Dosing ml/min Est GFR ( Amer) Est GFR (Non-Af Amer) BUN/Creatinine Ratio (10-20) Glucose (70-99) mg/dl Calcium (8.5-10.1) mg/dl Phosphorus (2.5-4.9) mg/dl Albumin (3.4-5.0) gm/dl 25-OH Vitamin D Total 33.6 (30-100) ng/ml PTH Intact (18.4-80.1) pg/ml Blood Type O Positive Antibody Screen NEGATIVE _ (1) Closed subcapital fracture of neck of left femur Encounter type: initial encounter Fracture healing: Qualified Code(s): S72.012A - Unspecified intracapsular fracture of left femur, initial encounter for closed fracture (2) Hypertension Hypertension type: essential hypertension Qualified Code(s): I10 - Essential (primary) hypertension (3) CAD (coronary artery disease) Coronary Disease-Associated Artery/Lesion type: [place] artery [place] vs. transplanted heart: [place] heart Associated angina: without angina Qualified Code(s): I25.10 - Atherosclerotic heart disease of [place] coronary artery without angina pectoris (4) Hyperlipidemia Hyperlipidemia type: unspecified Qualified Code(s): E78.5 - Hyperlipidemia, unspecified (5) Gastritis Gastritis type: unspecified gastritis Chronicity: unspecified Gastritis bleeding: presence of bleeding unspecified Qualified Code(s): K29.70 - Gastritis, unspecified, without bleeding
[2018-03-28] MEDS: DOCUSATE SODIUM/SENNA 50/8.6MG TAB PO SCH (21:02)
[2018-03-28] MEDS: CEFAZOLIN 2000MG 2,000 MG/15 ML SYR IV SCH (21:04)
[2018-03-29] MEDS: OXYCODONE HCL IR 5 MG TAB (IMMEDIATE RELEASE) PO PRN ×3 (03:40→16:40)
[2018-03-29] MEDS: CEFAZOLIN 2000MG 2,000 MG/15 ML SYR IV SCH (06:05)
--- NOTE | 2018-03-29 07:52 | Anesthesiology Progress Note ---
Date of Service March 29, 2018 Anesthesia Post Procedure Vital Signs Vital Signs: Temp Pulse Pulse Pulse Pulse Resp BP 03/29/18 07:29 36.7 C 63 16 03/29/18 04:00 03/29/18 03:35 36.6 C 61 17 03/28/18 23:45 03/28/18 23:08 36.6 C 67 20 03/28/18 22:22 36.7 C 71 16 03/28/18 20:57 36.6 C 87 20 03/28/18 20:00 36.8 C 72 16 03/28/18 19:30 36.4 C L 85 18 03/28/18 19:00 36.4 C L 99 H 18 03/28/18 18:41 36.8 C 99 H 16 164/69 H 03/28/18 18:40 95 H 14 03/28/18 18:36 95 H 22 143/68 H 03/28/18 18:35 94 H 15 03/28/18 18:31 101 H 12 167/71 H 03/28/18 18:30 101 H 18 03/28/18 18:28 98 H 19 125/76 03/28/18 18:26 93 H 20 183/166 H 03/28/18 18:25 98 H 21 03/28/18 18:21 93 H 17 153/79 H 03/28/18 18:20 97 H 13 03/28/18 18:16 96 H 21 178/90 H 03/28/18 18:15 108 H 21 03/28/18 18:11 96 H 13 145/117 H 03/28/18 18:10 98 H 15 03/28/18 18:06 96 H 17 163/88 H 03/28/18 18:05 96 H 20 03/28/18 18:01 99 H 19 167/102 H 03/28/18 18:00 95 H 17 03/28/18 17:56 104 H 17 159/141 H 03/28/18 17:55 96 H 19 03/28/18 17:51 93 H 14 150/80 H 03/28/18 17:50 82 26 H 03/28/18 17:46 85 17 144/56 H 03/28/18 17:45 83 17 03/28/18 17:41 84 24 148/64 H 03/28/18 17:40 36.4 C L 86 16 03/28/18 13:46 36.9 C 62 20 BP Pulse Ox Pulse Ox 03/29/18 07:29 134/66 96 03/29/18 04:00 96 03/29/18 03:35 149/70 H 95 03/28/18 23:45 96 03/28/18 23:08 122/66 96 03/28/18 22:22 123/62 94 03/28/18 20:57 123/70 94 03/28/18 20:00 134/68 99 99 03/28/18 19:30 153/72 H 96 03/28/18 19:00 153/72 H 95 03/28/18 18:41 97 03/28/18 18:40 97 03/28/18 18:36 98 03/28/18 18:35 97 03/28/18 18:31 97 03/28/18 18:30 99 03/28/18 18:28 96 03/28/18 18:26 96 03/28/18 18:25 97 03/28/18 18:21 97 03/28/18 18:20 97 03/28/18 18:16 96 03/28/18 18:15 99 03/28/18 18:11 97 03/28/18 18:10 97 03/28/18 18:06 97 03/28/18 18:05 97 03/28/18 18:01 96 03/28/18 18:00 97 03/28/18 17:56 97 03/28/18 17:55 98 03/28/18 17:51 96 03/28/18 17:50 99 03/28/18 17:46 99 03/28/18 17:45 99 03/28/18 17:41 98 03/28/18 17:40 148/64 H 97 03/28/18 13:46 155/75 H 94 Pain Intensity Leg: Pain Intensity: 0 Left Hip: Pain Intensity: 0 Notes Mental Status: alert / awake / arousable and participated in evaluation Nausea / Vomiting: adequately controlled Pain: adequately controlled Airway Patency, RR, SpO2: stable & adequate BP & HR: stable & adequate Hydration State: stable & adequate
[2018-03-29 08:27] LABS: Eosinophils # (auto) 0.01 K/uL (0-0.5); Eosinophils % (auto) 0.1 %; Hematocrit (blood only) 34.9 % (37-47); Hemoglobin 11.2 g/dL (12.0-16.0); Immature Granulocytes # (auto) 0.04 K/uL (0.00-0.02); Immature Granulocytes % (auto) 0.3 %; Lymphocytes # (auto) 1.31 K/uL (1.2-3.4); Lymphocytes % (auto) 8.7 %; Mean Corpuscular Hgb Conc 32.1 g/dL (32-36); Mean Corpuscular Volume 86.8 fL (80-100); Mean Platelet Volume 9.2 fL (7.4-10.4); Monocytes # (auto) 1.27 K/uL (0.11-0.59); Monocytes % (auto) 8.5 %; Neutrophils # (auto) 12.38 K/uL (1.4-6.5); Neutrophils % (auto) 82.4 %; Platelet Count 199 K/uL (130-400); RDW Coefficient of Variation 14.8 % (11.5-14.5); RDW Standard Deviation 46.9 fL (36.4-46.3); Red Blood Count 4.02 M/uL (4.2-5.4); White Blood Count 15.01 K/uL (4.8-10.8)
[2018-03-29] MEDS: LACTATED RINGER'S 1,000 ML IV SCH (08:29)
[2018-03-29 09:02] LABS: BUN Creatinine Ratio 22.5 (10-20); Calcium 9.6 mg/dl (8.5-10.1); Creatinine Clr Calc Pharmacy 29.3 ml/min; Est GFR (African American) 45.2; Potassium 4.9 mmol/L (3.5-5.1)
[2018-03-29] MEDS: MINOXIDIL 2.5 MG TAB PO SCH (09:04)
[2018-03-29] MEDS: METOPROLOL TARTRATE 50 MG TAB PO SCH ×2 (09:04→21:37)
[2018-03-29] MEDS: ENALAPRIL MALEATE 10 MG TAB PO SCH (09:04)
[2018-03-29] MEDS: GABAPENTIN 100 MG CAP PO SCH ×3 (09:04→21:37)
[2018-03-29] MEDS: ASPIRIN 81 MG ECTAB PO SCH (09:04)
[2018-03-29] MEDS: ENOXAPARIN INJ 40 MG/0.4 ML SYR SQ SCH (09:05)
[2018-03-29] MEDS: predniSONE 5 MG TAB PO SCH (09:05)
[2018-03-29] MEDS: AMLODIPINE BESYLATE 5 MG TAB PO SCH (09:05)
[2018-03-29] MEDS: PANTOprazole 40 MG TAB PO SCH (09:05)
[2018-03-29] MEDS: ATORVASTATIN 20 MG TAB PO SCH (09:05)
--- NOTE | 2018-03-29 10:01 | Orthopedic Progress Note ---
Date of Service March 29, 2018 Assessment & Plan (1) Closed subcapital fracture of neck of left femur: IMPRESSION: Left subcapital hip fracture, pathologic. PLAN: OOB with assistance of a walker She may WBAT LLE Posterior hip precautions; encouraged pillow between knees when out of bed and abduction pillow when in bed. Lovenox started today for DVT prophylaxis. Continue Lovenox x 3 weeks, then ASA 325mg BID x 3 weeks thereafter. Pain medication as prescribed. Continue regular diet. Plan for follow up as outpatient in approximately 2 weeks. Will continue to follow while inpatient. I, Dr. Wu, saw and examined the patient and discussed the management with my PA. I reviewed my PAs note and agree with the documented findings and the plan of care I developed. Continue care per primary service. Subjective Patient doing well, sitting in chair, just completed PT. OOB with walker, denies pain. Denies chest pain, SOB, dizziness. Pain controlled with pain medication. Lovenox started today. Physical Exam 2 Vital Signs (Past 24 Hours): Last Vital Signs Temp 36.7 C 03/29/18 07:29 Pulse 63 03/29/18 09:00 Resp 16 03/29/18 07:29 BP 110/66 03/29/18 09:00 Pulse Ox 96 03/29/18 07:30 Physical Exam: Left hip dressing clean and dry. Dressings intact. No distal edema, calf supple/nontender to palpation. Strength left ankle 5/5. Tolerates ROM of left ankle, knee and gentle ROM of left hip. Results & Data Laboratory Results 03/29/18 03/29/18 Range/Units 08:09 08:09 WBC 15.01 H (4.8-10.8) K/uL RBC 4.02 L (4.2-5.4) M/uL Hgb 11.2 L (12.0-16.0) g/dL Hct 34.9 L (37-47) % MCV 86.8 (80-100) fL MCH 27.9 (25-34) pg MCHC 32.1 (32-36) g/dL RDW Std Deviation 46.9 H (36.4-46.3) fL RDW Coeff of Madeline 14.8 H (11.5-14.5) % Plt Count 199 (130-400) K/uL MPV 9.2 (7.4-10.4) fL Immature Gran % (Auto) 0.3 % Neut % (Auto) 82.4 % Lymph % (Auto) 8.7 % [place] % (Auto) 8.5 % Eos % (Auto) 0.1 % Baso % (Auto) 0.0 % Immature Gran # (Auto) 0.04 H (0.00-0.02) K/uL Neut # (Auto) 12.38 H (1.4-6.5) K/uL Lymph # (Auto) 1.31 (1.2-3.4) K/uL [place] # (Auto) 1.27 H (0.11-0.59) K/uL Eos # (Auto) 0.01 (0-0.5) K/uL Baso # (Auto) 0.00 (0-0.2) K/uL Sodium 139 (136-145) mmol/L Potassium 4.9 D (3.5-5.1) mmol/L Chloride 104 (98-107) mmol/L Carbon Dioxide 27 (21-32) mmol/L Anion Gap 8.0 (3-11) BUN 28 H (7-18) mg/dl Creatinine 1.24 H (0.6-1.2) mg/dl Est Cr Clr Drug Dosing 29.3 ml/min Est GFR ( Amer) 45.2 Est GFR (Non-Af Amer) 39.0 BUN/Creatinine Ratio 22.5 H (10-20) Glucose 128 H (70-99) mg/dl Calcium 9.6 (8.5-10.1) mg/dl Diagnostic Findings XR hip LT min 2V CLINICAL HISTORY: Post-Operative implant position COMPARISON: Left hip radiographs March 27, 2018. 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 There is no periprosthetic fracture or unexpected radiopaque foreign body. IMPRESSION: Expected findings following left hip hemiarthroplasty. _ (1) Closed subcapital fracture of neck of left femur Encounter type: initial encounter Fracture healing: Qualified Code(s): S72.012A - Unspecified intracapsular fracture of left femur, initial encounter for closed fracture
--- NOTE | 2018-03-29 15:16 | XRay Report ---
XR chest 2V routine CLINICAL HISTORY: 87 years-old Female presenting with left basilar rales. TECHNIQUE: PA and lateral views of the chest were obtained. COMPARISON: Chest CT from 11/11/2017 and chest x-ray from 11/10/2017. FINDINGS: Atherosclerosis of the aortic arch. Cardiac silhouette enlarged. Abnormal circumferential soft tissue density along the upper trachea likely correlates with thyromegaly evident on prior CT. Chronic blun ting of the left costophrenic angle. This likely relates to a pericardial fat pad. Lungs and pleural spaces clear. Degenerative changes of the thoracic spine. Upper abdomen normal. IMPRESSION: 1. Thyromegaly. 2. Cardiomegaly. 3. No acute cardiopulmonary disease. Electronically signed by: Anthony Hill M.D. 03/29/2018 3:15 PM
--- NOTE | 2018-03-29 20:19 | Hospitalist Progress Note ---
Date of Service March 29, 2018 Assessment & Plan (1) Closed subcapital fracture of neck of left femur: POD #1, s/p ORIF by Dr. Wu. Vitamin D level acceptable. Pain control acceptable. DVT proph - lovenox. Dispo - [facility] in [place] for [place]hab. Needs DEXA scan in the near future after d/c. Present on Admission?: Yes (2) Chronic diastolic CHF (congestive heart failure): compensated cont BB (3) Abnormal lung examination: LLL rales. Chest x-ray obtained -- no infiltrates. Atelectasis? Scar tissue? other? O2 sats acceptable. incentive spirometry. (4) CAD (coronary artery disease): no ischemic symptoms at this time. cont ASA, BB, statin, etc. (5) Hypertension: control acceptable with home medication regimen. (6) Polymyalgia rheumatica: no symptoms at this time. cont prednisone 5mg daily. (7) Pulmonary hypertension: o2 sats acceptable. (8) Hypercalcemia: resolved with IV hydration. looks like she has very mild, early primary hyperparathyroidism. will need outpatient surveillance for this. (9) Chronic kidney disease, stage 3a: creatinine stable. BMP again in am. (10) Constipation: dulcolax suppos x 1 today. continue oral bowel regimen. (11) DVT prophylaxis: lovenox daily d/c to SNF tomorrow Subjective patient overall feeling ok mild left hip pain only denies dyspnea, cp, abd pain does report constipation eating decently she mentions she was referred to a medical representative in 2018 she is unsure why, but rheumatology sent her the medical representative told her to "come back in 2 years" and that "everything was ok " denies any recent issues with her PMR Constitutional: no fever, no chills and no anorexia Respiratory: no cough and no dyspnea Cardiovascular: no chest pain Gastrointestinal: + constipation; no abdominal pain, no nausea and no vomiting Physical Exam 2 Vital Signs (Past 24 Hours): Last Vital Signs Temp 36.9 C 03/29/18 15:43 Pulse 64 03/29/18 15:43 Resp 17 03/29/18 15:43 BP 109/61 03/29/18 15:43 Pulse Ox 95 03/29/18 16:00 Constitutional: well developed and well nourished; no acute distress and not ill appearing ENMT: external ear and nose normal, oropharynx normal Respiratory: Auscultation: + crackles (1/3 way up back on Left); no rhonchi and no wheezes Cardiovascular: Rate/Rhythm: regular rate and regular rhythm Heart Sounds: normal S1 and normal S2; no murmur Vessels: posterior tibial pulses present and dorsalis pedis pulses present; no JVD Extremities: no edema Gastrointestinal (Abdomen): Inspection/Auscultation: + abdomen distended (mild ) and normal bowel sounds Percussion/Palpation: abdomen soft; abdomen nontender and no hepatomegaly Musculoskeletal: left hip dressings in place Psychiatric: A+Ox3, euthymic affect Results & Data Laboratory Results Laboratory Results - last 24 hr 03/29/18 03/29/18 08:09 08:09 WBC 15.01 H RBC 4.02 L Hgb 11.2 L Hct 34.9 L MCV 86.8 MCH 27.9 MCHC 32.1 RDW Std Deviation 46.9 H RDW Coeff of Madeline 14.8 H Plt Count 199 MPV 9.2 Immature Gran % (Auto) 0.3 Neut % (Auto) 82.4 Lymph % (Auto) 8.7 [place] % (Auto) 8.5 Eos % (Auto) 0.1 Baso % (Auto) 0.0 Immature Gran # (Auto) 0.04 H Neut # (Auto) 12.38 H Lymph # (Auto) 1.31 [place] # (Auto) 1.27 H Eos # (Auto) 0.01 Baso # (Auto) 0.00 Sodium 139 Potassium 4.9 D Chloride 104 Carbon Dioxide 27 Anion Gap 8.0 BUN 28 H Creatinine 1.24 H Est Cr Clr Drug Dosing 29.3 Est GFR ( Amer) 45.2 Est GFR (Non-Af Amer) 39.0 BUN/Creatinine Ratio 22.5 H Glucose 128 H Calcium 9.6 _ (1) Closed subcapital fracture of neck of left femur Encounter type: initial encounter Fracture healing: Qualified Code(s): S72.012A - Unspecified intracapsular fracture of left femur, initial encounter for closed fracture (2) CAD (coronary artery disease) Coronary Disease-Associated Artery/Lesion type: [place] artery [place] vs. transplanted heart: [place] heart Associated angina: without angina Qualified Code(s): I25.10 - Atherosclerotic heart disease of [place] coronary artery without angina pectoris (3) Hypertension Hypertension type: essential hypertension Qualified Code(s): I10 - Essential (primary) hypertension (4) Constipation Constipation type: other constipation type Qualified Code(s): K59.09 - Other constipation
[2018-03-29] MEDS: DOCUSATE SODIUM/SENNA 50/8.6MG TAB PO SCH (21:38)
[2018-03-30] MEDS: predniSONE 5 MG TAB PO SCH (07:51)
[2018-03-30] MEDS: ATORVASTATIN 20 MG TAB PO SCH (07:51)
[2018-03-30] MEDS: PANTOprazole 40 MG TAB PO SCH (07:51)
[2018-03-30] MEDS: ENALAPRIL MALEATE 10 MG TAB PO SCH (07:51)
[2018-03-30] MEDS: AMLODIPINE BESYLATE 5 MG TAB PO SCH (07:51)
[2018-03-30] MEDS: MINOXIDIL 2.5 MG TAB PO SCH (07:51)
[2018-03-30] MEDS: METOPROLOL TARTRATE 50 MG TAB PO SCH ×2 (07:52→20:20)
[2018-03-30] MEDS: ASPIRIN 81 MG ECTAB PO SCH (07:52)
[2018-03-30] MEDS: GABAPENTIN 100 MG CAP PO SCH ×3 (07:52→20:20)
[2018-03-30] MEDS: ENOXAPARIN INJ 40 MG/0.4 ML SYR SQ SCH (07:53)
[2018-03-30] MEDS: OXYCODONE HCL IR 5 MG TAB (IMMEDIATE RELEASE) PO PRN (07:56)
[2018-03-30 08:30] LABS: Hematocrit (blood only) 33.6 % (37-47); Hemoglobin 10.9 g/dL (12.0-16.0); Mean Corpuscular Hgb Conc 32.4 g/dL (32-36); Mean Corpuscular Volume 86.4 fL (80-100); Mean Platelet Volume 8.8 fL (7.4-10.4); Platelet Count 195 K/uL (130-400); RDW Standard Deviation 46.6 fL (36.4-46.3); Red Blood Count 3.89 M/uL (4.2-5.4); White Blood Count 12.71 K/uL (4.8-10.8)
[2018-03-30 08:57] LABS: BUN Creatinine Ratio 21.7 (10-20); Calcium 9.7 mg/dl (8.5-10.1); Creatinine Clr Calc Pharmacy 21.6 ml/min; Est GFR (African American) 31.3; Potassium 4.2 mmol/L (3.5-5.1)
--- NOTE | 2018-03-30 09:14 | Orthopedic Progress Note ---
Date of Service March 30, 2018 Assessment & Plan (1) Closed subcapital fracture of neck of left femur: IMPRESSION: Left subcapital hip fracture, pathologic. - POD #2 PLAN: OOB with assistance of a walker She may WBAT LLE Posterior hip precautions; encouraged pillow between knees when out of bed and abduction pillow when in bed. Continue Lovenox x 3 weeks, then ASA 325mg BID x 3 weeks thereafter. Pain medication as prescribed. Encouraged deep breathing and coughs/incentive spirometry Continue regular diet. Okay from orthopedic standpoint for discharge today if medically stable. Plan for follow up as outpatient in approximately 2 weeks. Will discuss findings with Dr. Wu. I, Dr. Wu, saw and examined the patient and discussed the management with my PA. I reviewed my PAs note and agree with the documented findings and the plan of care I developed. Subjective Doing well, complaining of some stiffness left hip. was walking in the hallway , states some pain for the first couple of steps, but then it loosens up. Denies chest pain or shortness of breath, states that she had a chest x-ray done yesterday. Dressing changed left hip early this morning. No drainage noted from nursing. Physical Exam 2 Vital Signs (Past 24 Hours): Last Vital Signs Temp 36.7 C 03/30/18 07:08 Pulse 75 03/30/18 07:08 Resp 16 03/30/18 07:08 BP 168/63 H 03/30/18 07:08 Pulse Ox 98 03/30/18 07:08 Physical Exam: Left hip dressing removed, zip-line in place, no evidence of surrounding hematoma or seroma. Nontender to palpation around incision, no erythema or ecchymosis. No distal edema. Strength 5/5. Distal N/V intact. i clean, dry and intact. Silverlon dressing applied to left hip. Results & Data Laboratory Results 03/30/18 03/30/18 Range/Units 08:10 08:10 WBC 12.71 H (4.8-10.8) K/uL RBC 3.89 L (4.2-5.4) M/uL Hgb 10.9 L (12.0-16.0) g/dL Hct 33.6 L (37-47) % MCV 86.4 (80-100) fL MCH 28.0 (25-34) pg MCHC 32.4 (32-36) g/dL RDW Std Deviation 46.6 H (36.4-46.3) fL RDW Coeff of Madeline 15.0 H (11.5-14.5) % Plt Count 195 (130-400) K/uL MPV 8.8 (7.4-10.4) fL Sodium 138 (136-145) mmol/L Potassium 4.2 (3.5-5.1) mmol/L Chloride 104 (98-107) mmol/L Carbon Dioxide 27 (21-32) mmol/L Anion Gap 7.0 (3-11) BUN 36 H (7-18) mg/dl Creatinine 1.68 H D (0.6-1.2) mg/dl Est Cr Clr Drug Dosing 21.6 ml/min Est GFR ( Amer) 31.3 Est GFR (Non-Af Amer) 27.0 BUN/Creatinine Ratio 21.7 H (10-20) Glucose 155 H (70-99) mg/dl Calcium 9.7 (8.5-10.1) mg/dl Diagnostic Findings XR chest 2V routine CLINICAL HISTORY: 87 years-old Female presenting with left basilar rales. TECHNIQUE: PA and lateral views of the chest were obtained. COMPARISON: Chest CT from 11/11/2017 and chest x-ray from 11/10/2017. FINDINGS: Atherosclerosis of the aortic arch. Cardiac silhouette enlarged. Abnormal circumferential soft tissue density along the upper trachea likely correlates with thyromegaly evident on prior CT. Chronic blunting of the left costophrenic angle. This likely relates to a pericardial fat pad. Lungs and pleural spaces clear. Degenerative changes of the thoracic spine. Upper abdomen normal. IMPRESSION: 1. Thyromegaly. 2. Cardiomegaly. 3. No acute cardiopulmonary disease. _ (1) Closed subcapital fracture of neck of left femur Encounter type: initial encounter Fracture healing: Qualified Code(s): S72.012A - Unspecified intracapsular fracture of left femur, initial encounter for closed fracture
[2018-03-30 11:35] LABS: Appearance Urine Clear (Clear); Bilirubin Urine Negative (Negative); Color Urine Yellow; Glucose Urine UA Negative (Negative); Ketones Urine Negative (Negative); Leukocyte Esterase Urine Negative (Negative); Nitrite Urine Negative (Negative); Protein Urine Negative (Negative); Specific Gravity Urine 1.017 (1.000-1.030); Urobilinogen Urine Negative (Negative)
[2018-03-30] MEDS: ACETAMINOPHEN 325 MG TAB PO PRN (14:16)
[2018-03-30] MEDS: HYDROCODONE/ACETAMOPHEN 5/325MG TAB PO PRN (17:33)
--- NOTE | 2018-03-30 20:27 | Hospitalist Progress Note ---
Date of Service March 30, 2018 Assessment & Plan (1) Closed subcapital fracture of neck of left femur: POD #2, s/p ORIF by Dr. uW. Vitamin D level acceptable. Pain control acceptable. DVT proph - lovenox. Dispo - [facility] in [place] for rehab. Needs DEXA scan in the near future after d/c. (2) Chronic diastolic CHF (congestive heart failure): compensated cont BB (3) Abnormal lung examination: chest x-ray yesterday was normal. rales resolved clinically today. was likely atelectasis that is now resolved. (4) CAD (coronary artery disease): no ischemic symptoms at this time. cont ASA, BB, statin, etc. (5) Hypertension: control acceptable with home medication regimen. (6) Polymyalgia rheumatica: no symptoms at this time. cont prednisone 5mg daily. (7) Pulmonary hypertension: o2 sats acceptable. (8) Hypercalcemia: resolved with IV hydration. mild primary hyperparathyroidism suspected. will need outpatient surveillance for this. (9) Chronic kidney disease, stage 3a: now with mild acute kidney injury. u/a today without any sediment or other abnormalities. CINDY is likely due to mild volume depletion. will give 500cc of NS overnight and repeat BMP in am. (10) Constipation: resolved cont bowel regimen (11) Acute kidney failure: likely due to mild volume depletion 500cc of NS tonight repeat BMP am (12) Delirium: could be from oxycodone or simply from hospital psychosis stop oxycodone monitor (13) DVT prophylaxis: lovenox daily d/c to SNF tomorrow daughter updated at bedside today Subjective patient has noted some very mild confusion intermittently including at bedtime last night otherwise is ambulating the hallways pain controlled +stool today eating decently no other complaints Constitutional: no fever Respiratory: no cough and no dyspnea Cardiovascular: no chest pain Gastrointestinal: no abdominal pain, no nausea and no vomiting Physical Exam 2 Vital Signs (Past 24 Hours): Last Vital Signs Temp 37.1 C 03/30/18 14:42 Pulse 62 03/30/18 20:20 Resp 18 03/30/18 14:42 BP 103/57 L 03/30/18 20:20 Pulse Ox 97 03/30/18 14:42 Constitutional: well developed and well nourished; no acute distress and not ill appearing ENMT: external ear and nose normal, oropharynx normal Respiratory: normal respiratory effort, lungs clear to auscultation Auscultation: + rhonchi and + wheezes Cardiovascular: Rate/Rhythm: regular rate and regular rhythm Heart Sounds: normal S1 and normal S2; no murmur Vessels: posterior tibial pulses present and dorsalis pedis pulses present; no JVD Extremities: no edema Gastrointestinal (Abdomen): Inspection/Auscultation: normal bowel sounds; abdomen not distended (resolved today) Percussion/Palpation: abdomen soft; abdomen nontender and no hepatomegaly Psychiatric: A+Ox3, euthymic affect Results & Data Laboratory Results Laboratory Results - last 24 hr 03/30/18 03/30/18 03/30/18 08:10 08:10 11:07 WBC 12.71 H RBC 3.89 L Hgb 10.9 L Hct 33.6 L MCV 86.4 MCH 28.0 MCHC 32.4 RDW Std Deviation 46.6 H RDW Coeff of Madeline 15.0 H Plt Count 195 MPV 8.8 Sodium 138 Potassium 4.2 Chloride 104 Carbon Dioxide 27 Anion Gap 7.0 BUN 36 H Creatinine 1.68 H D Est Cr Clr Drug Dosing 21.6 Est GFR ( Amer) 31.3 Est GFR (Non-Af Amer) 27.0 BUN/Creatinine Ratio 21.7 H Glucose 155 H Calcium 9.7 Urine Color Yellow Urine Appearance Clear Urine pH 5.0 Ur Specific [place] 1.017 Urine Protein Negative Urine Glucose (UA) Negative Urine Ketones Negative Urine Blood Negative Urine Nitrite Negative Urine Bilirubin Negative Urine Urobilinogen Negative Ur Leukocyte Esterase Negative _ (1) CAD (coronary artery disease) Associated angina: without angina Coronary Disease-Associated Artery/Lesion type: [place] artery [place] vs. transplanted heart: [place] heart Qualified Code (s): I25.10 - Atherosclerotic heart disease of [place] coronary artery without angina pectoris (2) Hypertension Hypertension type: essential hypertension Qualified Code(s): I10 - Essential (primary) hypertension (3) Constipation Constipation type: other constipation type Qualified Code(s): K59.09 - Other constipation (4) Closed subcapital fracture of neck of left femur Encounter type: initial encounter Fracture healing: Qualified Code(s): S72.012A - Unspecified intracapsular fracture of left femur, initial encounter for closed fracture (5) Acute kidney failure Acute renal failure type: unspecified Qualified Code(s): N17.9 - Acute kidney failure, unspecified
[2018-03-30] MEDS ORDERED: SODIUM CHLORIDE 0.9% 1000ML 1,000 ML IV SCH (20:45)
[2018-03-30] MEDS: DOCUSATE SODIUM/SENNA 50/8.6MG TAB PO SCH (20:50)
[2018-03-31] MEDS: HYDROCODONE/ACETAMOPHEN 5/325MG TAB PO PRN ×2 (00:50→08:24)
[2018-03-31 06:09] LABS: Creatinine Clr Calc Pharmacy 26.2 ml/min; Est GFR (African American) 39.4
[2018-03-31 06:12] LABS: BUN Creatinine Ratio 28.2 (10-20); Calcium 9.4 mg/dl (8.5-10.1); Creatinine Clr Calc Pharmacy 26.3 ml/min; Est GFR (African American) 39.7; Est GFR (Non-African American) 34.3; Potassium 4.6 mmol/L (3.5-5.1)
[2018-03-31] MEDS: predniSONE 5 MG TAB PO SCH (08:18)
[2018-03-31] MEDS: AMLODIPINE BESYLATE 5 MG TAB PO SCH (08:18)
[2018-03-31] MEDS: PANTOprazole 40 MG TAB PO SCH (08:18)
[2018-03-31] MEDS: ATORVASTATIN 20 MG TAB PO SCH (08:18)
[2018-03-31] MEDS: ASPIRIN 81 MG ECTAB PO SCH (08:19)
[2018-03-31] MEDS: METOPROLOL TARTRATE 50 MG TAB PO SCH (08:19)
[2018-03-31] MEDS: GABAPENTIN 100 MG CAP PO SCH ×2 (08:19→13:02)
[2018-03-31] MEDS: MINOXIDIL 2.5 MG TAB PO SCH (08:19)
[2018-03-31] MEDS ORDERED: ENOXAPARIN INJ 30 MG/0.3 ML SYR SQ SCH (09:00)
--- NOTE | 2018-03-31 09:03 | Orthopedic Progress Note ---
Date of Service March 31, 2018 Assessment & Plan (1) Closed subcapital fracture of neck of left femur: Ok for transfer today. Continue PT/OT Continue DVT prophylaxis F/U in the office in 2 weeks for staple removal WBAT with walker I, Dr. Wu, saw and examined the patient and discussed the management with my PA. I reviewed my PAs note and agree with the documented findings and the plan of care I developed. Continue total hip precautions. Subjective Patient is seen in her room this morning. Sitting in a chair after breakfast. States she has mild pain in the left hip, otherwise is doing fine. No other complaints. She feels ready for discharge. Physical Exam 2 Vital Signs (Past 24 Hours): Last Vital Signs Temp 36.9 C 03/31/18 07:06 Pulse 60 03/31/18 07:06 Resp 16 03/31/18 07:06 BP 158/65 H 03/31/18 07:06 Pulse Ox 94 03/31/18 07:06 Physical Exam: Supple motion of the hip without discomfort. Mild pain with palpation over the surgical site. Neurovascular exam to both lower extremities is unremarkable. pulses are 2+. _ (1) Closed subcapital fracture of neck of left femur Encounter type: initial encounter Fracture healing: Qualified Code(s): S72.012A - Unspecified intracapsular fracture of left femur, initial encounter for closed fracture
--- NOTE | 2018-03-31 10:17 | Discharge Summary ---
Date of Service date of admission - March 27, 2018 date of discharge - March 31, 2018 Admission HPI Per Admitting Provider The patient is a very pleasant 87-year-old female with a history of PMR on prednisone, HTN, Hyperlipidemia, chronic diastolic CHF, pulmonary hypertension, thyroid goiter, CAD status post stent in 2014, lower back pain, and gastritis, who presents to the ER with 1 week of progressively worsening left hip pain. The pain in the left hip started about 1 week ago spontaneously. She had no trauma or fall. It started radiating down her lateral left thigh and into the left groin to the point where she could barely walk anymore. In the ER, she was found to have a left subcapital hip fracture with mild impaction and proximal and lateral displacement. She reports that before the left hip pain, she could easily walk up and down a flight of stairs without any chest pain or shortness of breath. Since her stent placement in 2014 in the heart, she has had no cardiac issues. She has not had any angina at all. She reports she had an ultrasound of the heart about 2 months ago, but cannot recall if she has had a stress test since her stent was placed. She denies any shortness of breath, no lower extremity edema, and otherwise has been doing very well. Principal Diagnosis left hip fracture s/p ORIF Discharge Exam Constitutional well developed and well nourished; no acute distress and not ill appearing ENMT external ear and nose normal, oropharynx normal Respiratory normal respiratory effort, lungs clear to auscultation Cardiovascular Rate/Rhythm: regular rate and regular rhythm Heart Sounds: normal S1 and normal S2; no murmur Vessels: posterior tibial pulses present and dorsalis pedis pulses present; no JVD Extremities: no edema Gastrointestinal (Abdomen) Inspection/Auscultation: + abdomen distended (minimal ) and normal bowel sounds Percussion/Palpation: abdomen soft; abdomen nontender and no hepatomegaly Psychiatric A+Ox3, euthymic affect Discharge Data Allergies Allergy/AdvReac Type Severity Reaction Status Date / Time Sulfa (Sulfonamide Allergy Swelling Verified 03/27/18 15:35 Antibiotics) of the Eye zolpidem [From Ambien] AdvReac Unknown Confusion Verified 03/27/18 15:35 Consultations orthopedics - Jayson Bryce AYALA PT, OT Procedures Performed Operation Date: 03/28/18 08:20 s/p Left hip Hemiarthroplasty - Jayson A Bader, MD Hospital Course (1) Closed subcapital fracture of neck of left femur: The patient underwent an uncomplicated ORIF of the left hip fracture by Dr. Jayson Wu. Vitamin D level was acceptable at 33. Pain control was acceptable post-op. DVT prophylaxis - lovenox daily x 3 weeks, followed by 3 weeks of aspirin 325mg BID x 3 weeks. The patient will need a DEXA scan in the near future after discharge to assess her bone density. Her fracture was odd in that there was no obvious trauma which led to the fracture. The patient will need follow-up within 2 weeks of discharge with Dr. Wu for wound check. She can weight bear as tolerated on the left leg. (2) Chronic diastolic CHF (congestive heart failure): The patient was compensated throughout her stay. Chest x-rays did not show pulmonary edema. She remains on beta jennifer therapy along with lasix PRN. She should have daily weights at the SNF and her lasix instituted if any weight gain of more than 2-3 pounds occurs over a 1-2 day period. (3) Abnormal lung examination: Patient had transient rales during her stay, likely due to atelectasis. Chest x-rays failed to show pneumonia or pulmonary edema. (4) CAD (coronary artery disease): no ischemic symptoms during her hospitalization. continue ASA, beta jennifer, statin, etc. (5) Hypertension: control was acceptable with home medication regimen. (6) Polymyalgia rheumatica: no symptoms at this time. continue prednisone 5mg daily. (7) Pulmonary hypertension: o2 sats were acceptable while here. PA pressures were mild on echo in October 2017. (8) Hypercalcemia: this was transient and mild; resolved with IV hydration. mild primary hyperparathyroidism is suspected. intact PTH level was 88. total calcium level at discharge was 9.4; peak was 10.3. will need outpatient surveillance for this. (9) Chronic kidney disease, stage 3a: baseline Cr of 1.2 to 1.3. had mild acute kidney injury - likely due to volume depletion - with peak Creatinine of 1.6. (10) Constipation: resolved during her stay. she was passing flatus and stool before discharge and eating well. continue bowel regimen after discharge. (11) Acute kidney failure: likely due to mild volume depletion. again peak creatinine was 1.6, improving to 1.3 at discharge. suggest repeat BMP in 5 days post-discharge to ensure stable creatinine, etc. (12) Delirium: mild, possibly due to use of oxycodone. resolved prior to discharge. (13) DVT prophylaxis: lovenox 30mg daily x 3 weeks, followed by aspirin 325mg BID x 3 weeks. the patient is transferring to [facility] in [place] for skilled rehab at time of hospital discharge. Total Time Total Time Spent Total Time Spent (In Minutes): 40 Total Time Includes: Examination of the Patient, Discharge Planning and Medication Reconciliation Discharge Plan Discharge Items Patient Disposition: Transfer Halfway Fac Reason For Visit: HIP FRACTURE Discharge Diagnosis: left hip fracture with repair Discharge Goals: Decrease discomfort and Therapeutic intervention Activity: As commented below Weightbearing: Left weightbearing Weightbearing Comment: as tolerated with assistance of a walker; Posterior hip precautions. Non-emergency contact: Surgeon Call non-emergency contact if: you have any medication questions, your pain is not controlled, your pain is unusual for you, you have a fever, your temperature is above 101, your wound has increased redness and your wound has increased drainage Follow-up/Referrals: Jayson Wu MD [Physician] - 04/12/18 1:45 pm Diet: Heart Healthy Add Provider Instructions: [facility] Ken Sant[facility]. Orthopedic discharge instructions: Weight bear as tolerated left lower extremity Ice to left hip as needed for pain/swelling. Elevate left leg as needed for pain/swelling Keep incision covered, keep silverlon in place until follow up appointment. Use walker to assist with ambulation Posterior hip precautions at all times. Standard pillow between knees when in chair, abduction pillow between legs when in bed. Teds bilaterally for edema/DVT prophylaxis. Lovenox as ordered x 3 weeks, then ASA 325mg BID x 3 weeks thereafter. May shower with Silverlon dressing in place. Please notify Dr. Wu at [phone] with any increased drainage, pain, swelling, or redness. 2. Repeat CBC and BMP in 5 days for stability. 3. follow-up with PCP within 1 week of discharge from [facility]. 4. Again -- start lovenox for DVT prophylaxis on 04/01/2018 x 3 weeks. The lovenox will end at that time. Then start aspirin 325mg twice a day for 3 weeks after that. 5. Return to [facility] if - * fevers over 101 degrees * concerns about left hip wound infection (drainage, redness, increasing pain, etc) * any shortness of breath or chest pain * any other concerns Prescriptions: New sennosides-docusate sodium [Senna with Docusate Sodium] 8.6-50 mg Tablet 2 tab PO HS Qty: 60 RF: 0 enoxaparin [Lovenox] 30 mg/0.3 mL Syringe 30 mg subcut Q24H Qty: 3 RF: 0 aspirin 325 mg tablet 325 mg PO BID Qty: 42 RF: 0 ferrous sulfate 325 mg (65 mg iron) tablet 325 mg PO BID Qty: 60 RF: 1 Continue prednisone 5 mg Tablet 5 mg PO DAILY RF: 0 metoprolol tartrate 50 mg tablet 50 mg PO BID RF: 0 pantoprazole 40 mg tablet,delayed release (DR/EC) 40 mg PO QAM RF: 0 furosemide 20 mg tablet 20 mg PO DAILY PRN (Reason: leg swelling) RF: 0 amlodipine 10 mg tablet 10 mg PO DAILY RF: 0 minoxidil 2.5 mg Tablet 2.5 mg PO DAILY RF: 0 atorvastatin 20 mg Tablet 20 mg PO DAILY RF: 0 gabapentin 100 mg Capsule 100 mg PO TID RF: 0 moexipril 7.5 mg tablet 7.5 mg PO DAILY Qty: 30 RF: 0 Changed hydrocodone-acetaminophen 5-325 mg tablet 1 tab PO Q6H PRN (Reason: Pain) Qty: 30 RF: 0 Stand-Alone Forms: [facility] Discharge Orders: Discharge Order (Routine); Ordered 03/31/18 Ordered By: Ken Santana Skilled Items Patient informed of condition?: Yes DNR: No Discharge Level of Care: Skilled Communicable Disease: No Discharge Prognosis: Stable Admission Data Admit Date/Time: 03/27/18 18:51 Attending Provider: Ken Santana Admit Provider: Kirsten Gay Primary Care Provider: Nnamdi Miranda Other Providers: Kirsten Gay ; Juancho Ortiz ; Jayson Wu Service: Medical Other Pending Studies at Discharge: No
[2018-03-31] MEDS: ACETAMINOPHEN 325 MG TAB PO PRN (13:03)
== END 2018-03-31 14:34 | DRG 470 ==
LOC: ED 14:23 → 3N 18:51 → SUATTDRO 18:51 → 3N 19:40